=== PATIENT | male | born 1960 | race African-American/Black ===

== ENCOUNTER 2022-03-30 12:12 | Inpatient (IN) | payer OTHER ==
[2022-03-30 12:19] VITALS: BMI 25.0
[2022-03-30 13:39] LABS: BASO % 0.1 % (0-2.0); HEMATOCRIT 37.3 % (35.4-49); HEMOGLOBIN 12.5 GM/dL (11.7-16.9); LYMPH % 6.7 % (8-40); MCH 31.4 pg (25.7-33.7); MCHC 33.4 g/dl (32.0-35.9); MEAN CELL VOLUME 93.9 fl (80-96); MEAN PLT VOLUME 7.5 fl (7.5-11.1); MONO % 7.9 % (3.8-10.2); NEUT % 85.3 % (42.8-82.8); PLATELET COUNT 146 10^3/uL (134-434); RBC 3.97 M/mm3 (4.00-5.60); RDW 13.8 % (11.9-15.9); WHITE BLOOD COUNT 8.1 K/mm3 (4.0-10.0)
[2022-03-30 13:44] LABS: INR 1.18 (0.83-1.09); PROTHROMBIN TIME (PATIENT) 13.6 SEC (9.7-13.0)
[2022-03-30 13:47] LABS: ACTIVATED PTT 27.3 SECONDS (25.2-36.5)
[2022-03-30 13:52] LABS: BLOOD UREA NITROGEN 19.9 mg/dL (7-18); CALCIUM 8.7 mg/dL (8.5-10.1)
[2022-03-30 13:53] LABS: ALBUMIN 3.1 g/dl (3.4-5.0)
[2022-03-30 13:56] LABS: CREATININE 1.1 mg/dL (0.55-1.3)
[2022-03-30 13:57] LABS: BILIRUBIN,TOTAL 0.8 mg/dL (0.2-1); TOT PROT 7.7 g/dl (6.4-8.2)
[2022-03-30] MEDS ORDERED: ACETAMINOPHEN 1000 MG/100 ML BAG IVPB ONE (13:57)
[2022-03-30] MEDS ORDERED: ONDANSETRON 4 MG/2 ML VIAL IVPUSH ONE (13:57)
[2022-03-30] MEDS ORDERED: SODIUM CHLORIDE 1,000 ML IV STA ×2 (14:32→16:40)
[2022-03-30] MEDS ORDERED: ACETAMINOPHEN INJECTION 100 ML IVPB ONE (15:34)
[2022-03-30] MEDS ORDERED: ONDANSETRON 4 MG/2 ML VIAL ONE (15:35)
[2022-03-30 20:10] LABS: EPI CELLS 27 /uL (0-25.1); HYALINE CASTS 9 /uL (0-3.1); PH,URINE 5.5 (5.0-8.0); URINE APPEARANCE CLEAR; URINE BACTERIA 20 /uL (0-1359); URINE BILIRUBIN 1+ (NEGATIVE); URINE COLOR DK YELLOW; URINE GLUCOSE (UA) NEGATIVE (NEGATIVE); URINE KETONE 1+ (NEGATIVE); URINE LEUK ESTERASE NEGATIVE (NEGATIVE); URINE NITRITE NEGATIVE (NEGATIVE); URINE PROTEIN 3+ (NEGATIVE); URINE RBC 9 /uL (0-23.9); URINE WBC 10 /uL (0-25.8)
[2022-03-30] MEDS ORDERED: IBUPROFEN 400 MG TABLET (FP) PO ONE (23:23)
[2022-03-31] MEDS ORDERED: IBUPROFEN 400 MG TABLET (FP) PO ONE (00:35)
[2022-03-31] MEDS ORDERED: CEFTRIAXONE 1,000 MG in DEXTROSE 5%-WATER - 50 ML IVPB ONE (00:36)
[2022-03-31] MEDS ORDERED: CEFTRIAXONE 1 GM/50 ML BAG ONE (01:37)
[2022-03-31] MEDS ORDERED: SODIUM CHLORIDE 1,000 ML IV SCH (05:05)
[2022-03-31 06:32] LABS: HEMATOCRIT 37.1 % (35.4-49); HEMOGLOBIN 12.2 GM/dL (11.7-16.9); MCH 31.1 pg (25.7-33.7); MCHC 32.8 g/dl (32.0-35.9); MEAN CELL VOLUME 94.8 fl (80-96); MEAN PLT VOLUME 7.6 fl (7.5-11.1); PLATELET COUNT 127 10^3/uL (134-434); RBC 3.91 M/mm3 (4.00-5.60); RDW 13.7 % (11.9-15.9); WHITE BLOOD COUNT 6.8 K/mm3 (4.0-10.0)
[2022-03-31 06:56] LABS: ALBUMIN 2.7 g/dl (3.4-5.0); BLOOD UREA NITROGEN 17.1 mg/dL (7-18); CALCIUM 8.7 mg/dL (8.5-10.1); MAGNESIUM 2.3 mg/dL (1.8-2.4)
[2022-03-31 06:59] LABS: PHOSPHOROUS 2.5 mg/dL (2.5-4.9)
[2022-03-31 07:00] LABS: TOT PROT 6.9 g/dl (6.4-8.2)
[2022-03-31] MEDS ORDERED: LOSARTAN POTASSIUM 50 MG TABLET ONE (08:25)
[2022-03-31] MEDS ORDERED: ENOXAPARIN NA (PORCINE) 40 MG/0.4 ML DISP.SYRIN SQ ONE (08:26)
[2022-03-31] MEDS ORDERED: TAMSULOSIN HCL 0.4 MG CAP ONE (08:26)
[2022-03-31] MEDS: TAMSULOSIN HCL 0.4 MG CAP PO SCH (08:29)
[2022-03-31] MEDS: SODIUM CHLORIDE 1,000 ML IV SCH (08:29)
[2022-03-31 08:45] LABS: ANISOCYTOSIS 0; HELMET CELLS 0; HOWELL-JOLLY BODIES 0; MACROCYTOSIS 0; OVALOCYTE 0; ROULEAU 0; SICKELED CELLS 0; TARGET CELLS 0; TEAR DROP CELLS 0; TOXIC GRANULATION 0
[2022-03-31] MEDS ORDERED: VANCOMYCIN/WATER 1,250 MG/250 ML BAG (RESTRICTED TO ID ONLY) IVPB SCH ×2 (10:00)
[2022-03-31] MEDS: ENOXAPARIN NA (PORCINE) 40 MG/0.4 ML DISP.SYRIN SQ SCH (10:06)
[2022-03-31] MEDS: LOSARTAN POTASSIUM 50 MG TABLET PO SCH (10:07)
[2022-03-31] MEDS ORDERED: CEFTRIAXONE 2 GM in DEXTROSE 5%-WATER 50 ML IVPB SCH (10:30)
[2022-03-31] MEDS ORDERED: CEFTRIAXONE 2 GM in DEXTROSE 5%-WATER 100 ML IVPB SCH (10:33)
[2022-03-31] MEDS: VANCOMYCIN/WATER FOR INJ (PEG) 1,000 MG/200 ML BAG IVPB SCH (21:30)
[2022-04-01] MEDS: SODIUM CHLORIDE 1,000 ML IV SCH (06:34)
[2022-04-01] MEDS: ENOXAPARIN NA (PORCINE) 40 MG/0.4 ML DISP.SYRIN SQ SCH (09:27)
[2022-04-01] MEDS: LOSARTAN POTASSIUM 50 MG TABLET PO SCH (09:27)
[2022-04-01] MEDS: TAMSULOSIN HCL 0.4 MG CAP PO SCH (09:27)
[2022-04-01] MEDS: VANCOMYCIN/WATER FOR INJ (PEG) 1,000 MG/200 ML BAG IVPB SCH (09:28)
[2022-04-01 10:18] LABS: BASO % 0.2 % (0-2.0); EOS % 0.3 % (0-4.5); HEMATOCRIT 33.9 % (35.4-49); HEMOGLOBIN 11.1 GM/dL (11.7-16.9); LYMPH % 14.3 % (8-40); MCH 30.6 pg (25.7-33.7); MCHC 32.7 g/dl (32.0-35.9); MEAN CELL VOLUME 93.7 fl (80-96); MEAN PLT VOLUME 8.2 fl (7.5-11.1); MONO % 12.1 % (3.8-10.2); NEUT % 73.1 % (42.8-82.8); PLATELET COUNT 133 10^3/uL (134-434); RBC 3.62 M/mm3 (4.00-5.60); WHITE BLOOD COUNT 6.6 K/mm3 (4.0-10.0)
[2022-04-01 10:41] LABS: CALCIUM 8.2 mg/dL (8.5-10.1)
[2022-04-01 10:42] LABS: ALBUMIN 2.2 g/dl (3.4-5.0); BLOOD UREA NITROGEN 16.5 mg/dL (7-18); MAGNESIUM 2.3 mg/dL (1.8-2.4)
[2022-04-01 10:45] LABS: CREATININE 0.9 mg/dL (0.55-1.3); PHOSPHOROUS 1.8 mg/dL (2.5-4.9)
[2022-04-01 10:46] LABS: BILIRUBIN,TOTAL 1.2 mg/dL (0.2-1); TOT PROT 6.1 g/dl (6.4-8.2)
[2022-04-01] MEDS: NAFCILLIN - 2 GM in DEXTROSE 5%-WATER 100 ML IVPB SCH ×2 (17:25→23:11)
[2022-04-01] MEDS ORDERED: POTASSIUM PHOSPHATE 30 MM in SODIUM CHLORIDE 500 ML IVPB ONE (20:00)
[2022-04-02] MEDS ORDERED: ACETAMINOPHEN 1000 MG/100 ML BAG IVPB ONE (00:39)
[2022-04-02] MEDS: NAFCILLIN - 2 GM in DEXTROSE 5%-WATER 100 ML IVPB SCH ×6 (02:49→21:57)
[2022-04-02] MEDS: SODIUM CHLORIDE 1,000 ML IV SCH ×2 (04:35→17:34)
[2022-04-02] MEDS: ENOXAPARIN NA (PORCINE) 40 MG/0.4 ML DISP.SYRIN SQ SCH (09:04)
[2022-04-02] MEDS: LOSARTAN POTASSIUM 50 MG TABLET PO SCH (09:04)
[2022-04-02] MEDS: TAMSULOSIN HCL 0.4 MG CAP PO SCH (09:04)
[2022-04-02] MEDS: POLYETHYLENE GLYCOL (HEALTHYLAX) 3350 17 GM PACKET PO SCH (12:33)
[2022-04-02 13:19] LABS: BASO % 0.2 % (0-2.0); EOS % 0.1 % (0-4.5); HEMATOCRIT 34.6 % (35.4-49); HEMOGLOBIN 11.4 GM/dL (11.7-16.9); LYMPH % 10.7 % (8-40); MCH 31.2 pg (25.7-33.7); MEAN CELL VOLUME 94.4 fl (80-96); MEAN PLT VOLUME 8.3 fl (7.5-11.1); PLATELET COUNT 147 10^3/uL (134-434); RBC 3.66 M/mm3 (4.00-5.60); RDW 14.2 % (11.9-15.9); WHITE BLOOD COUNT 5.6 K/mm3 (4.0-10.0)
[2022-04-02 13:49] LABS: ALBUMIN 1.9 g/dl (3.4-5.0); CALCIUM 7.7 mg/dL (8.5-10.1)
[2022-04-02 13:50] LABS: BLOOD UREA NITROGEN 15.5 mg/dL (7-18); MAGNESIUM 2.2 mg/dL (1.8-2.4)
[2022-04-02 13:52] LABS: PHOSPHOROUS 2.4 mg/dL (2.5-4.9)
[2022-04-02 13:54] LABS: BILIRUBIN,TOTAL 2.6 mg/dL (0.2-1)
[2022-04-02 14:00] LABS: TOT PROT 5.7 g/dl (6.4-8.2)
[2022-04-02 14:14] LABS: CREATININE 0.9 mg/dL (0.55-1.3)
[2022-04-03] MEDS: NAFCILLIN - 2 GM in DEXTROSE 5%-WATER 100 ML IVPB SCH ×6 (02:00→21:36)
[2022-04-03] MEDS ORDERED: NAPH,MB-DB/K PH,MBDB POWDER PACKET PO ONE (03:36)
[2022-04-03] MEDS ORDERED: amLODIPine BESYLATE 5 MG TABLET (FP) PO ONE (03:36)
[2022-04-03] MEDS: SODIUM CHLORIDE 1,000 ML IV SCH (05:42)
[2022-04-03 08:45] LABS: BASO % 0.3 % (0-2.0); EOS % 0.4 % (0-4.5); HEMATOCRIT 31.8 % (35.4-49); HEMOGLOBIN 10.8 GM/dL (11.7-16.9); LYMPH % 15.5 % (8-40); MCH 31.8 pg (25.7-33.7); MCHC 34.1 g/dl (32.0-35.9); MEAN CELL VOLUME 93.2 fl (80-96); MONO % 12.4 % (3.8-10.2); NEUT % 71.4 % (42.8-82.8); PLATELET COUNT 194 10^3/uL (134-434); RBC 3.41 M/mm3 (4.00-5.60); WHITE BLOOD COUNT 6.8 K/mm3 (4.0-10.0)
[2022-04-03 09:12] LABS: ALBUMIN 1.7 g/dl (3.4-5.0); CALCIUM 8.1 mg/dL (8.5-10.1)
[2022-04-03 09:13] LABS: BLOOD UREA NITROGEN 14.4 mg/dL (7-18); MAGNESIUM 2.2 mg/dL (1.8-2.4)
[2022-04-03 09:16] LABS: CREATININE 0.9 mg/dL (0.55-1.3); PHOSPHOROUS 2.8 mg/dL (2.5-4.9)
[2022-04-03 09:17] LABS: BILIRUBIN,TOTAL 1.2 mg/dL (0.2-1); TOT PROT 5.6 g/dl (6.4-8.2)
[2022-04-03] MEDS: HYDROCHLOROTHIAZIDE 25 MG TABLET (FP) PO SCH (09:36)
[2022-04-03] MEDS: LOSARTAN POTASSIUM 50 MG TABLET PO SCH (09:36)
[2022-04-03] MEDS: POLYETHYLENE GLYCOL (HEALTHYLAX) 3350 17 GM PACKET PO SCH (09:37)
[2022-04-03] MEDS: TAMSULOSIN HCL 0.4 MG CAP PO SCH (09:37)
[2022-04-03] MEDS: ENOXAPARIN NA (PORCINE) 40 MG/0.4 ML DISP.SYRIN SQ SCH (09:37)
[2022-04-03] MEDS ORDERED: PATIENT'S OWN MEDICATION (NON-FORMULARY) (Losartan/Hydrochlorothiazide [Hyzaar 100-25 Tabl PO SCH (10:00)
[2022-04-04] MEDS: NAFCILLIN - 2 GM in DEXTROSE 5%-WATER 100 ML IVPB SCH ×6 (01:59→21:05)
[2022-04-04] MEDS: TAMSULOSIN HCL 0.4 MG CAP PO SCH (08:47)
[2022-04-04 09:58] LABS: BASO % 0.2 % (0-2.0); EOS % 0.4 % (0-4.5); HEMATOCRIT 33.7 % (35.4-49); HEMOGLOBIN 11.5 GM/dL (11.7-16.9); LYMPH % 16.3 % (8-40); MCH 31.6 pg (25.7-33.7); MCHC 34.2 g/dl (32.0-35.9); MEAN CELL VOLUME 92.2 fl (80-96); MEAN PLT VOLUME 7.8 fl (7.5-11.1); MONO % 10.8 % (3.8-10.2); NEUT % 72.3 % (42.8-82.8); PLATELET COUNT 280 10^3/uL (134-434); RBC 3.65 M/mm3 (4.00-5.60); RDW 14.3 % (11.9-15.9); WHITE BLOOD COUNT 7.8 K/mm3 (4.0-10.0)
[2022-04-04] MEDS: ENOXAPARIN NA (PORCINE) 40 MG/0.4 ML DISP.SYRIN SQ SCH (10:00)
[2022-04-04] MEDS: HYDROCHLOROTHIAZIDE 25 MG TABLET (FP) PO SCH (10:00)
[2022-04-04] MEDS: LOSARTAN POTASSIUM 50 MG TABLET PO SCH (10:00)
[2022-04-04] MEDS: POLYETHYLENE GLYCOL (HEALTHYLAX) 3350 17 GM PACKET PO SCH (10:02)
[2022-04-04 10:18] LABS: ALBUMIN 1.9 g/dl (3.4-5.0); BLOOD UREA NITROGEN 15.3 mg/dL (7-18); CALCIUM 8.1 mg/dL (8.5-10.1); MAGNESIUM 2.4 mg/dL (1.8-2.4)
[2022-04-04 10:21] LABS: PHOSPHOROUS 3.5 mg/dL (2.5-4.9)
[2022-04-04 10:22] LABS: BILIRUBIN,TOTAL 1.8 mg/dL (0.2-1); TOT PROT 6.5 g/dl (6.4-8.2)
[2022-04-04] MEDS: VANCOMYCIN/WATER FOR INJ (PEG) 1,000 MG/200 ML BAG IVPB SCH (14:37)
[2022-04-04] MEDS ORDERED: POTASSIUM CHLORIDE TABS 20 MEQ TABLET.ER (FP) PO ONE ×2 (14:45→18:00)
[2022-04-05] MEDS: NAFCILLIN - 2 GM in DEXTROSE 5%-WATER 100 ML IVPB SCH ×6 (01:32→22:27)
[2022-04-05] MEDS: VANCOMYCIN/WATER FOR INJ (PEG) 1,000 MG/200 ML BAG IVPB SCH (02:41)
[2022-04-05] MEDS: TAMSULOSIN HCL 0.4 MG CAP PO SCH (08:04)
[2022-04-05] MEDS ORDERED: DOCUSATE SODIUM 100 MG CAPSULE (FP) PO PRN (08:27)
[2022-04-05] MEDS ORDERED: SENNOSIDES 8.6MG TABLET (FP) PO PRN (08:27)
[2022-04-05 10:10] LABS: BASO % 0.3 % (0-2.0); EOS % 0.4 % (0-4.5); HEMATOCRIT 34.9 % (35.4-49); HEMOGLOBIN 11.9 GM/dL (11.7-16.9); LYMPH % 16.2 % (8-40); MCH 31.8 pg (25.7-33.7); MEAN CELL VOLUME 93.5 fl (80-96); MEAN PLT VOLUME 7.5 fl (7.5-11.1); MONO % 7.9 % (3.8-10.2); NEUT % 75.2 % (42.8-82.8); PLATELET COUNT 380 10^3/uL (134-434); RBC 3.73 M/mm3 (4.00-5.60); RDW 14.9 % (11.9-15.9); WHITE BLOOD COUNT 8.9 K/mm3 (4.0-10.0)
[2022-04-05] MEDS: LOSARTAN POTASSIUM 50 MG TABLET PO SCH (10:23)
[2022-04-05] MEDS: POLYETHYLENE GLYCOL (HEALTHYLAX) 3350 17 GM PACKET PO SCH (10:23)
[2022-04-05] MEDS: HYDROCHLOROTHIAZIDE 25 MG TABLET (FP) PO SCH (10:23)
[2022-04-05] MEDS: ENOXAPARIN NA (PORCINE) 40 MG/0.4 ML DISP.SYRIN SQ SCH (10:23)
[2022-04-05 10:31] LABS: BLOOD UREA NITROGEN 20.7 mg/dL (7-18); CALCIUM 8.2 mg/dL (8.5-10.1); MAGNESIUM 2.6 mg/dL (1.8-2.4)
[2022-04-05 10:34] LABS: CREATININE 1.2 mg/dL (0.55-1.3); PHOSPHOROUS 3.4 mg/dL (2.5-4.9)
[2022-04-05 10:36] LABS: BILIRUBIN,TOTAL 1.7 mg/dL (0.2-1); TOT PROT 7.1 g/dl (6.4-8.2)
[2022-04-05] MEDS: ERTAPENEM SODIUM 1 GM in SODIUM CHLORIDE 50 ML IVPB SCH (14:53)
[2022-04-06] MEDS: NAFCILLIN - 2 GM in DEXTROSE 5%-WATER 100 ML IVPB SCH ×6 (01:26→21:34)
[2022-04-06] MEDS: TAMSULOSIN HCL 0.4 MG CAP PO SCH (08:55)
[2022-04-06] MEDS ORDERED: INSULIN (NOVOLOG) ASPART 100 UNITS/ML 10ML VIAL ONE (10:54)
[2022-04-06] MEDS: ERTAPENEM SODIUM 1 GM in SODIUM CHLORIDE 50 ML IVPB SCH (11:07)
[2022-04-06] MEDS: HYDROCHLOROTHIAZIDE 25 MG TABLET (FP) PO SCH (11:08)
[2022-04-06] MEDS: LOSARTAN POTASSIUM 50 MG TABLET PO SCH (11:08)
[2022-04-06] MEDS: POLYETHYLENE GLYCOL (HEALTHYLAX) 3350 17 GM PACKET PO SCH (11:10)
[2022-04-06] MEDS: ENOXAPARIN NA (PORCINE) 40 MG/0.4 ML DISP.SYRIN SQ SCH ×2 (11:14→15:02)
[2022-04-06 11:33] LABS: HEMATOCRIT 32.5 % (35.4-49); HEMOGLOBIN 10.8 GM/dL (11.7-16.9); MCH 30.9 pg (25.7-33.7); MCHC 33.2 g/dl (32.0-35.9); MEAN PLT VOLUME 7.5 fl (7.5-11.1); PLATELET COUNT 452 10^3/uL (134-434); RDW 14.6 % (11.9-15.9); WHITE BLOOD COUNT 6.3 K/mm3 (4.0-10.0)
[2022-04-06 11:51] LABS: CALCIUM 8.1 mg/dL (8.5-10.1)
[2022-04-06 11:52] LABS: ALBUMIN 1.8 g/dl (3.4-5.0); BLOOD UREA NITROGEN 25.1 mg/dL (7-18)
[2022-04-06] MEDS ORDERED: LIDOCAINE VISCOUS 2% ORAL/TOP 15 ML UNIT-DOSE CUP ONE (11:52)
[2022-04-06 11:55] LABS: CREATININE 1.2 mg/dL (0.55-1.3); PHOSPHOROUS 3.7 mg/dL (2.5-4.9)
[2022-04-06 11:56] LABS: BILIRUBIN,TOTAL 1.2 mg/dL (0.2-1); TOT PROT 6.9 g/dl (6.4-8.2)
[2022-04-06 12:30] LABS: ANISOCYTOSIS 0; HELMET CELLS 0; HOWELL-JOLLY BODIES 0; MACROCYTOSIS 0; OVALOCYTE 0; ROULEAU 0; SICKELED CELLS 0; TARGET CELLS 0; TEAR DROP CELLS 0; TOXIC GRANULATION 0
[2022-04-07] MEDS: NAFCILLIN - 2 GM in DEXTROSE 5%-WATER 100 ML IVPB SCH ×6 (02:05→21:30)
[2022-04-07] MEDS: TAMSULOSIN HCL 0.4 MG CAP PO SCH (10:13)
[2022-04-07] MEDS: LOSARTAN POTASSIUM 50 MG TABLET PO SCH (10:13)
[2022-04-07] MEDS: HYDROCHLOROTHIAZIDE 25 MG TABLET (FP) PO SCH (10:13)
[2022-04-07] MEDS: ENOXAPARIN NA (PORCINE) 40 MG/0.4 ML DISP.SYRIN SQ SCH (10:13)
[2022-04-07] MEDS: POLYETHYLENE GLYCOL (HEALTHYLAX) 3350 17 GM PACKET PO SCH (10:14)
[2022-04-07] MEDS: ERTAPENEM SODIUM 1 GM in SODIUM CHLORIDE 50 ML IVPB SCH (10:14)
[2022-04-07 10:37] LABS: BASO % 0.7 % (0-2.0); EOS % 0.3 % (0-4.5); HEMATOCRIT 32.2 % (35.4-49); LYMPH % 22.9 % (8-40); MCH 31.8 pg (25.7-33.7); MCHC 34.2 g/dl (32.0-35.9); MEAN CELL VOLUME 92.9 fl (80-96); MONO % 7.9 % (3.8-10.2); NEUT % 68.2 % (42.8-82.8); PLATELET COUNT 502 10^3/uL (134-434); RBC 3.47 M/mm3 (4.00-5.60); RDW 14.8 % (11.9-15.9); WHITE BLOOD COUNT 6.1 K/mm3 (4.0-10.0)
[2022-04-07 11:40] LABS: CALCIUM 8.6 mg/dL (8.5-10.1)
[2022-04-07 11:41] LABS: BLOOD UREA NITROGEN 31.7 mg/dL (7-18)
[2022-04-07 11:44] LABS: CREATININE 1.5 mg/dL (0.55-1.3); PHOSPHOROUS 4.2 mg/dL (2.5-4.9)
[2022-04-07 11:45] LABS: TOT PROT 7.3 g/dl (6.4-8.2)
[2022-04-07 11:46] LABS: BILIRUBIN,TOTAL 1.4 mg/dL (0.2-1)
[2022-04-08] MEDS: NAFCILLIN - 2 GM in DEXTROSE 5%-WATER 100 ML IVPB SCH ×6 (02:30→21:51)
[2022-04-08] MEDS: LOSARTAN POTASSIUM 50 MG TABLET PO SCH (09:22)
[2022-04-08] MEDS: ENOXAPARIN NA (PORCINE) 40 MG/0.4 ML DISP.SYRIN SQ SCH (09:22)
[2022-04-08] MEDS: HYDROCHLOROTHIAZIDE 25 MG TABLET (FP) PO SCH (09:22)
[2022-04-08] MEDS: TAMSULOSIN HCL 0.4 MG CAP PO SCH (09:22)
[2022-04-08] MEDS: POLYETHYLENE GLYCOL (HEALTHYLAX) 3350 17 GM PACKET PO SCH (09:23)
[2022-04-08 09:59] LABS: BASO % 0.8 % (0-2.0); EOS % 0.3 % (0-4.5); HEMATOCRIT 29.7 % (35.4-49); HEMOGLOBIN 10.3 GM/dL (11.7-16.9); LYMPH % 20.7 % (8-40); MCHC 34.7 g/dl (32.0-35.9); MEAN CELL VOLUME 92.4 fl (80-96); MEAN PLT VOLUME 6.9 fl (7.5-11.1); MONO % 8.7 % (3.8-10.2); NEUT % 69.5 % (42.8-82.8); PLATELET COUNT 520 10^3/uL (134-434); RBC 3.22 M/mm3 (4.00-5.60); RDW 14.7 % (11.9-15.9); WHITE BLOOD COUNT 5.5 K/mm3 (4.0-10.0)
[2022-04-08 10:12] LABS: CALCIUM 8.3 mg/dL (8.5-10.1)
[2022-04-08 10:13] LABS: ALBUMIN 1.8 g/dl (3.4-5.0); BLOOD UREA NITROGEN 31.1 mg/dL (7-18)
[2022-04-08 10:16] LABS: BILIRUBIN,TOTAL 1.5 mg/dL (0.2-1); CREATININE 1.5 mg/dL (0.55-1.3)
[2022-04-08 10:18] LABS: TOT PROT 6.8 g/dl (6.4-8.2)
[2022-04-08] MEDS: ERTAPENEM SODIUM 1 GM in SODIUM CHLORIDE 50 ML IVPB SCH (11:35)
[2022-04-08] MEDS ORDERED: POTASSIUM CHLORIDE ORAL LIQUID 20 MEQ/15 ML PO ONE (17:28)
[2022-04-08] MEDS: LIDOCAINE 5% TOPICAL PATCH TP SCH (18:19)
[2022-04-08] MEDS: LIDOCAINE PATCH REMOVAL MC SCH (21:51)
[2022-04-09] MEDS: NAFCILLIN - 2 GM in DEXTROSE 5%-WATER 100 ML IVPB SCH ×5 (02:24→17:10)
[2022-04-09] MEDS ORDERED: traMADol HCL 50 MG TABLET PO PRN ×2 (08:22→09:13)
[2022-04-09] MEDS: POLYETHYLENE GLYCOL (HEALTHYLAX) 3350 17 GM PACKET PO SCH (09:10)
[2022-04-09] MEDS: ENOXAPARIN NA (PORCINE) 40 MG/0.4 ML DISP.SYRIN SQ SCH (09:11)
[2022-04-09] MEDS: ERTAPENEM SODIUM 1 GM in SODIUM CHLORIDE 50 ML IVPB SCH (09:13)
[2022-04-09] MEDS: LOSARTAN POTASSIUM 50 MG TABLET PO SCH (09:13)
[2022-04-09] MEDS: TAMSULOSIN HCL 0.4 MG CAP PO SCH (09:13)
[2022-04-09] MEDS: LIDOCAINE 5% TOPICAL PATCH TP SCH (09:14)
[2022-04-09 10:18] LABS: BASO % 0.5 % (0-2.0); EOS % 0.8 % (0-4.5); HEMATOCRIT 31.7 % (35.4-49); HEMOGLOBIN 10.5 GM/dL (11.7-16.9); LYMPH % 22.8 % (8-40); MCH 30.7 pg (25.7-33.7); MCHC 33.2 g/dl (32.0-35.9); MEAN CELL VOLUME 92.7 fl (80-96); MEAN PLT VOLUME 7.1 fl (7.5-11.1); MONO % 7.9 % (3.8-10.2); PLATELET COUNT 590 10^3/uL (134-434); RBC 3.42 M/mm3 (4.00-5.60); RDW 14.8 % (11.9-15.9); WHITE BLOOD COUNT 5.6 K/mm3 (4.0-10.0)
[2022-04-09 10:36] LABS: ALBUMIN 1.8 g/dl (3.4-5.0); BLOOD UREA NITROGEN 24.8 mg/dL (7-18); CALCIUM 8.3 mg/dL (8.5-10.1); MAGNESIUM 3.1 mg/dL (1.8-2.4)
[2022-04-09 10:40] LABS: BILIRUBIN,TOTAL 1.3 mg/dL (0.2-1); CREATININE 1.4 mg/dL (0.55-1.3); PHOSPHOROUS 3.8 mg/dL (2.5-4.9); TOT PROT 7.4 g/dl (6.4-8.2)
[2022-04-09 10:42] LABS: IRON SERUM 43 ug/dL (50-175)
[2022-04-09 10:44] LABS: TOTAL IRON BINDING CAPACITY 203 ug/dL (250-450)
[2022-04-09] MEDS ORDERED: POTASSIUM CHLORIDE TABS 20 MEQ TABLET.ER (FP) PO ONE (17:31)
[2022-04-09] MEDS ORDERED: CEFAZOLIN SODIUM 2 GM in DEXTROSE 5%-WATER 100 ML IVPB SCH (18:00)
[2022-04-09] MEDS: CEFAZOLIN SODIUM 2 GM in DEXTROSE 5%-WATER 100 ML IVPB SCH (21:38)
[2022-04-09] MEDS: LIDOCAINE PATCH REMOVAL MC SCH (21:39)
[2022-04-10] MEDS: CEFAZOLIN SODIUM 2 GM in DEXTROSE 5%-WATER 100 ML IVPB SCH ×3 (05:33→22:26)
[2022-04-10] MEDS: TAMSULOSIN HCL 0.4 MG CAP PO SCH (08:20)
[2022-04-10] MEDS: POLYETHYLENE GLYCOL (HEALTHYLAX) 3350 17 GM PACKET PO SCH (09:27)
[2022-04-10] MEDS: ENOXAPARIN NA (PORCINE) 40 MG/0.4 ML DISP.SYRIN SQ SCH (09:27)
[2022-04-10] MEDS: LOSARTAN POTASSIUM 50 MG TABLET PO SCH (09:27)
[2022-04-10] MEDS: LIDOCAINE 5% TOPICAL PATCH TP SCH (09:27)
[2022-04-10 09:49] LABS: BASO % 0.3 % (0-2.0); EOS % 0.6 % (0-4.5); HEMATOCRIT 29.9 % (35.4-49); HEMOGLOBIN 10.3 GM/dL (11.7-16.9); LYMPH % 23.1 % (8-40); MCHC 34.4 g/dl (32.0-35.9); MEAN CELL VOLUME 93.2 fl (80-96); MEAN PLT VOLUME 6.7 fl (7.5-11.1); MONO % 7.5 % (3.8-10.2); NEUT % 68.5 % (42.8-82.8); PLATELET COUNT 592 10^3/uL (134-434); RBC 3.21 M/mm3 (4.00-5.60); RDW 14.6 % (11.9-15.9); WHITE BLOOD COUNT 6.5 K/mm3 (4.0-10.0)
[2022-04-10 10:13] LABS: CALCIUM 8.5 mg/dL (8.5-10.1)
[2022-04-10 10:14] LABS: ALBUMIN 1.9 g/dl (3.4-5.0); MAGNESIUM 2.9 mg/dL (1.8-2.4)
[2022-04-10 10:18] LABS: BILIRUBIN,TOTAL 0.9 mg/dL (0.2-1); CREATININE 1.4 mg/dL (0.55-1.3); PHOSPHOROUS 3.5 mg/dL (2.5-4.9); TOT PROT 7.4 g/dl (6.4-8.2)
[2022-04-10] MEDS: LIDOCAINE PATCH REMOVAL MC SCH (22:32)
[2022-04-11] MEDS: CEFAZOLIN SODIUM 2 GM in DEXTROSE 5%-WATER 100 ML IVPB SCH ×3 (05:51→22:32)
[2022-04-11 09:36] LABS: BASO % 0.4 % (0-2.0); EOS % 0.4 % (0-4.5); HEMATOCRIT 30.6 % (35.4-49); HEMOGLOBIN 10.4 GM/dL (11.7-16.9); LYMPH % 22.1 % (8-40); MCH 31.1 pg (25.7-33.7); MCHC 33.8 g/dl (32.0-35.9); MEAN PLT VOLUME 6.8 fl (7.5-11.1); MONO % 7.2 % (3.8-10.2); NEUT % 69.9 % (42.8-82.8); PLATELET COUNT 686 10^3/uL (134-434); RBC 3.33 M/mm3 (4.00-5.60); RDW 14.3 % (11.9-15.9)
[2022-04-11 10:07] LABS: ALBUMIN 1.8 g/dl (3.4-5.0); BLOOD UREA NITROGEN 18.1 mg/dL (7-18)
[2022-04-11 10:09] LABS: CALCIUM 8.6 mg/dL (8.5-10.1); MAGNESIUM 2.6 mg/dL (1.8-2.4)
[2022-04-11 10:10] LABS: CREATININE 1.2 mg/dL (0.55-1.3); PHOSPHOROUS 3.5 mg/dL (2.5-4.9)
[2022-04-11 10:11] LABS: TOT PROT 7.8 g/dl (6.4-8.2)
[2022-04-11 10:12] LABS: BILIRUBIN,TOTAL 0.9 mg/dL (0.2-1)
[2022-04-11] MEDS: LIDOCAINE 5% TOPICAL PATCH TP SCH (10:23)
[2022-04-11] MEDS: POLYETHYLENE GLYCOL (HEALTHYLAX) 3350 17 GM PACKET PO SCH (10:23)
[2022-04-11] MEDS: LOSARTAN POTASSIUM 50 MG TABLET PO SCH (10:24)
[2022-04-11] MEDS: ENOXAPARIN NA (PORCINE) 40 MG/0.4 ML DISP.SYRIN SQ SCH (10:24)
[2022-04-11] MEDS: TAMSULOSIN HCL 0.4 MG CAP PO SCH (10:24)
[2022-04-11] MEDS ORDERED: POTASSIUM CHLORIDE TABS 20 MEQ TABLET.ER (FP) PO ONE (13:38)
[2022-04-11] MEDS: BACLOFEN 10 MG TABLET (FP) PO PRN (13:55)
[2022-04-11] MEDS: oxyCODONE HCL 5 MG TABLET PO PRN ×2 (13:55→20:24)
[2022-04-11] MEDS: GABAPENTIN 100 MG CAPSULE PO SCH ×2 (13:56→22:32)
[2022-04-11] MEDS: LIDOCAINE PATCH REMOVAL MC SCH (22:32)
[2022-04-12] MEDS: CEFAZOLIN SODIUM 2 GM in DEXTROSE 5%-WATER 100 ML IVPB SCH ×3 (06:19→22:25)
[2022-04-12] MEDS: GABAPENTIN 100 MG CAPSULE PO SCH ×3 (06:19→22:26)
[2022-04-12 09:34] LABS: BASO % 0.6 % (0-2.0); EOS % 0.4 % (0-4.5); HEMATOCRIT 29.7 % (35.4-49); LYMPH % 22.9 % (8-40); MCH 31.1 pg (25.7-33.7); MCHC 33.8 g/dl (32.0-35.9); MEAN PLT VOLUME 6.8 fl (7.5-11.1); MONO % 9.6 % (3.8-10.2); NEUT % 66.5 % (42.8-82.8); PLATELET COUNT 658 10^3/uL (134-434); RBC 3.23 M/mm3 (4.00-5.60); RDW 14.5 % (11.9-15.9); WHITE BLOOD COUNT 6.1 K/mm3 (4.0-10.0)
[2022-04-12 09:57] LABS: CALCIUM 8.7 mg/dL (8.5-10.1)
[2022-04-12 09:58] LABS: ALBUMIN 1.8 g/dl (3.4-5.0); MAGNESIUM 2.6 mg/dL (1.8-2.4)
[2022-04-12 09:59] LABS: PHOSPHOROUS 3.3 mg/dL (2.5-4.9)
[2022-04-12 10:01] LABS: BILIRUBIN,TOTAL 0.8 mg/dL (0.2-1); BLOOD UREA NITROGEN 19.3 mg/dL (7-18); CREATININE 1.1 mg/dL (0.55-1.3); TOT PROT 7.6 g/dl (6.4-8.2)
[2022-04-12] MEDS: LOSARTAN POTASSIUM 50 MG TABLET PO SCH (10:06)
[2022-04-12] MEDS: BACLOFEN 10 MG TABLET (FP) PO PRN (10:06)
[2022-04-12] MEDS: TAMSULOSIN HCL 0.4 MG CAP PO SCH (10:06)
[2022-04-12] MEDS: POLYETHYLENE GLYCOL (HEALTHYLAX) 3350 17 GM PACKET PO SCH (10:06)
[2022-04-12] MEDS: ENOXAPARIN NA (PORCINE) 40 MG/0.4 ML DISP.SYRIN SQ SCH (10:06)
[2022-04-12] MEDS: LIDOCAINE 5% TOPICAL PATCH TP SCH (10:06)
[2022-04-12] MEDS: LIDOCAINE PATCH REMOVAL MC SCH (22:26)
[2022-04-13] MEDS: CEFAZOLIN SODIUM 2 GM in DEXTROSE 5%-WATER 100 ML IVPB SCH ×3 (06:28→22:16)
[2022-04-13] MEDS: GABAPENTIN 100 MG CAPSULE PO SCH ×3 (06:28→22:15)
[2022-04-13] MEDS: LIDOCAINE 5% TOPICAL PATCH TP SCH (10:04)
[2022-04-13] MEDS: POLYETHYLENE GLYCOL (HEALTHYLAX) 3350 17 GM PACKET PO SCH (10:05)
[2022-04-13] MEDS: LOSARTAN POTASSIUM 50 MG TABLET PO SCH (10:05)
[2022-04-13] MEDS: ENOXAPARIN NA (PORCINE) 40 MG/0.4 ML DISP.SYRIN SQ SCH (10:05)
[2022-04-13] MEDS: TAMSULOSIN HCL 0.4 MG CAP PO SCH (10:05)
[2022-04-13] MEDS: BACLOFEN 10 MG TABLET (FP) PO PRN (10:12)
[2022-04-13 11:18] LABS: BASO % 0.3 % (0-2.0); EOS % 0.1 % (0-4.5); HEMATOCRIT 31.6 % (35.4-49); HEMOGLOBIN 10.2 GM/dL (11.7-16.9); LYMPH % 24.6 % (8-40); MCHC 32.4 g/dl (32.0-35.9); MEAN CELL VOLUME 92.6 fl (80-96); MONO % 7.2 % (3.8-10.2); NEUT % 67.8 % (42.8-82.8); PLATELET COUNT 652 10^3/uL (134-434); RBC 3.41 M/mm3 (4.00-5.60); WHITE BLOOD COUNT 7.4 K/mm3 (4.0-10.0)
[2022-04-13 12:13] LABS: ALBUMIN 1.9 g/dl (3.4-5.0); BLOOD UREA NITROGEN 18.7 mg/dL (7-18); MAGNESIUM 2.4 mg/dL (1.8-2.4)
[2022-04-13 12:16] LABS: CREATININE 1.1 mg/dL (0.55-1.3); PHOSPHOROUS 3.4 mg/dL (2.5-4.9)
[2022-04-13 12:17] LABS: BILIRUBIN,TOTAL 0.9 mg/dL (0.2-1); TOT PROT 7.9 g/dl (6.4-8.2)
[2022-04-13] MEDS: LIDOCAINE PATCH REMOVAL MC SCH (22:16)
[2022-04-14] MEDS: GABAPENTIN 100 MG CAPSULE PO SCH ×3 (06:28→22:26)
[2022-04-14] MEDS: CEFAZOLIN SODIUM 2 GM in DEXTROSE 5%-WATER 100 ML IVPB SCH ×3 (06:28→22:26)
[2022-04-14] MEDS: TAMSULOSIN HCL 0.4 MG CAP PO SCH (09:31)
[2022-04-14] MEDS: LOSARTAN POTASSIUM 50 MG TABLET PO SCH (09:31)
[2022-04-14] MEDS: POLYETHYLENE GLYCOL (HEALTHYLAX) 3350 17 GM PACKET PO SCH (09:31)
[2022-04-14] MEDS: ENOXAPARIN NA (PORCINE) 40 MG/0.4 ML DISP.SYRIN SQ SCH (09:31)
[2022-04-14] MEDS: LIDOCAINE 5% TOPICAL PATCH TP SCH ×2 (09:32)
[2022-04-14 09:52] LABS: BASO % 0.6 % (0-2.0); EOS % 0.2 % (0-4.5); HEMATOCRIT 30.6 % (35.4-49); HEMOGLOBIN 10.1 GM/dL (11.7-16.9); LYMPH % 24.3 % (8-40); MCH 30.7 pg (25.7-33.7); MCHC 32.9 g/dl (32.0-35.9); MEAN CELL VOLUME 93.3 fl (80-96); MEAN PLT VOLUME 6.7 fl (7.5-11.1); MONO % 10.3 % (3.8-10.2); NEUT % 64.6 % (42.8-82.8); PLATELET COUNT 611 10^3/uL (134-434); RBC 3.28 M/mm3 (4.00-5.60); RDW 14.2 % (11.9-15.9); WHITE BLOOD COUNT 5.7 K/mm3 (4.0-10.0)
[2022-04-14 10:32] LABS: ALBUMIN 1.8 g/dl (3.4-5.0); BLOOD UREA NITROGEN 17.3 mg/dL (7-18); MAGNESIUM 2.3 mg/dL (1.8-2.4)
[2022-04-14 10:35] LABS: CREATININE 1.1 mg/dL (0.55-1.3); PHOSPHOROUS 3.3 mg/dL (2.5-4.9)
[2022-04-14 10:36] LABS: TOT PROT 7.7 g/dl (6.4-8.2)
[2022-04-14] MEDS: LIDOCAINE PATCH REMOVAL MC SCH (22:27)
[2022-04-15] MEDS: CEFAZOLIN SODIUM 2 GM in DEXTROSE 5%-WATER 100 ML IVPB SCH ×3 (06:06→21:58)
[2022-04-15] MEDS: GABAPENTIN 100 MG CAPSULE PO SCH ×3 (06:06→21:59)
[2022-04-15] MEDS: ENOXAPARIN NA (PORCINE) 40 MG/0.4 ML DISP.SYRIN SQ SCH (09:03)
[2022-04-15] MEDS: TAMSULOSIN HCL 0.4 MG CAP PO SCH (09:26)
[2022-04-15] MEDS: POLYETHYLENE GLYCOL (HEALTHYLAX) 3350 17 GM PACKET PO SCH (09:26)
[2022-04-15] MEDS: LOSARTAN POTASSIUM 50 MG TABLET PO SCH (09:26)
[2022-04-15] MEDS: LIDOCAINE 5% TOPICAL PATCH TP SCH (09:27)
[2022-04-15 10:07] LABS: BASO % 0.8 % (0-2.0); EOS % 0.4 % (0-4.5); HEMOGLOBIN 9.7 GM/dL (11.7-16.9); LYMPH % 30.9 % (8-40); MCHC 33.4 g/dl (32.0-35.9); MONO % 9.9 % (3.8-10.2); PLATELET COUNT 558 10^3/uL (134-434); RBC 3.12 M/mm3 (4.00-5.60); RDW 14.2 % (11.9-15.9); WHITE BLOOD COUNT 5.5 K/mm3 (4.0-10.0)
[2022-04-15 10:32] LABS: CREATININE 1.1 mg/dL (0.55-1.3)
[2022-04-15 10:33] LABS: ALBUMIN 1.8 g/dl (3.4-5.0); BILIRUBIN,TOTAL 0.8 mg/dL (0.2-1); CALCIUM 8.7 mg/dL (8.5-10.1)
[2022-04-15 10:35] LABS: PHOSPHOROUS 3.4 mg/dL (2.5-4.9)
[2022-04-15 10:36] LABS: MAGNESIUM 2.3 mg/dL (1.8-2.4)
[2022-04-15] MEDS: BACLOFEN 10 MG TABLET (FP) PO PRN (14:37)
[2022-04-15] MEDS: LIDOCAINE PATCH REMOVAL MC SCH (22:00)
[2022-04-16] MEDS: CEFAZOLIN SODIUM 2 GM in DEXTROSE 5%-WATER 100 ML IVPB SCH ×3 (05:55→21:30)
[2022-04-16] MEDS: GABAPENTIN 100 MG CAPSULE PO SCH ×3 (05:55→21:30)
[2022-04-16] MEDS: oxyCODONE HCL 5 MG TABLET PO PRN (08:13)
[2022-04-16] MEDS: ENOXAPARIN NA (PORCINE) 40 MG/0.4 ML DISP.SYRIN SQ SCH (09:36)
[2022-04-16] MEDS: POLYETHYLENE GLYCOL (HEALTHYLAX) 3350 17 GM PACKET PO SCH (09:40)
[2022-04-16] MEDS: TAMSULOSIN HCL 0.4 MG CAP PO SCH (09:40)
[2022-04-16] MEDS: LOSARTAN POTASSIUM 50 MG TABLET PO SCH (09:41)
[2022-04-16] MEDS: LIDOCAINE 5% TOPICAL PATCH TP SCH (09:42)
[2022-04-16 13:12] LABS: BASO % 0.7 % (0-2.0); EOS % 0.3 % (0-4.5); HEMATOCRIT 27.8 % (35.4-49); HEMOGLOBIN 9.3 GM/dL (11.7-16.9); LYMPH % 26.4 % (8-40); MCH 31.3 pg (25.7-33.7); MCHC 33.6 g/dl (32.0-35.9); MEAN CELL VOLUME 93.2 fl (80-96); MEAN PLT VOLUME 6.8 fl (7.5-11.1); MONO % 10.6 % (3.8-10.2); PLATELET COUNT 482 10^3/uL (134-434); RBC 2.99 M/mm3 (4.00-5.60); RDW 14.6 % (11.9-15.9); WHITE BLOOD COUNT 5.3 K/mm3 (4.0-10.0)
[2022-04-16 13:30] LABS: CALCIUM 8.9 mg/dL (8.5-10.1)
[2022-04-16 13:31] LABS: ALBUMIN 1.8 g/dl (3.4-5.0); BLOOD UREA NITROGEN 16.3 mg/dL (7-18); MAGNESIUM 2.3 mg/dL (1.8-2.4)
[2022-04-16 13:34] LABS: CREATININE 1.1 mg/dL (0.55-1.3); PHOSPHOROUS 3.6 mg/dL (2.5-4.9)
[2022-04-16 13:35] LABS: BILIRUBIN,TOTAL 0.8 mg/dL (0.2-1); TOT PROT 7.6 g/dl (6.4-8.2)
[2022-04-16] MEDS: LIDOCAINE PATCH REMOVAL MC SCH (21:45)
[2022-04-17] MEDS: GABAPENTIN 100 MG CAPSULE PO SCH ×3 (06:33→22:49)
[2022-04-17] MEDS: CEFAZOLIN SODIUM 2 GM in DEXTROSE 5%-WATER 100 ML IVPB SCH ×3 (06:33→22:51)
[2022-04-17 09:56] LABS: BASO % 0.7 % (0-2.0); EOS % 0.5 % (0-4.5); HEMOGLOBIN 9.2 GM/dL (11.7-16.9); LYMPH % 30.8 % (8-40); MCH 31.9 pg (25.7-33.7); MCHC 34.2 g/dl (32.0-35.9); MEAN CELL VOLUME 93.1 fl (80-96); MEAN PLT VOLUME 6.5 fl (7.5-11.1); MONO % 12.4 % (3.8-10.2); NEUT % 55.6 % (42.8-82.8); PLATELET COUNT 443 10^3/uL (134-434); RDW 14.1 % (11.9-15.9); WHITE BLOOD COUNT 4.4 K/mm3 (4.0-10.0)
[2022-04-17 10:24] LABS: ALBUMIN 1.8 g/dl (3.4-5.0); BLOOD UREA NITROGEN 16.8 mg/dL (7-18); CALCIUM 8.9 mg/dL (8.5-10.1); MAGNESIUM 2.4 mg/dL (1.8-2.4)
[2022-04-17 10:27] LABS: BILIRUBIN,TOTAL 0.7 mg/dL (0.2-1); PHOSPHOROUS 3.7 mg/dL (2.5-4.9); TOT PROT 7.5 g/dl (6.4-8.2)
[2022-04-17] MEDS: TAMSULOSIN HCL 0.4 MG CAP PO SCH (10:33)
[2022-04-17] MEDS: POLYETHYLENE GLYCOL (HEALTHYLAX) 3350 17 GM PACKET PO SCH (10:33)
[2022-04-17] MEDS: LOSARTAN POTASSIUM 50 MG TABLET PO SCH (10:33)
[2022-04-17] MEDS: LIDOCAINE 5% TOPICAL PATCH TP SCH (10:47)
[2022-04-17] MEDS: oxyCODONE HCL 5 MG TABLET PO PRN (22:49)
[2022-04-17] MEDS: BACLOFEN 10 MG TABLET (FP) PO PRN (22:50)
[2022-04-17] MEDS: LIDOCAINE PATCH REMOVAL MC SCH (22:51)
[2022-04-18] MEDS: GABAPENTIN 100 MG CAPSULE PO SCH ×3 (07:29→21:43)
[2022-04-18] MEDS: CEFAZOLIN SODIUM 2 GM in DEXTROSE 5%-WATER 100 ML IVPB SCH ×3 (07:29→21:43)
[2022-04-18] MEDS: TAMSULOSIN HCL 0.4 MG CAP PO SCH (08:31)
[2022-04-18 08:56] LABS: BASO % 0.7 % (0-2.0); EOS % 0.4 % (0-4.5); HEMATOCRIT 27.4 % (35.4-49); LYMPH % 24.9 % (8-40); MCH 30.9 pg (25.7-33.7); MCHC 32.7 g/dl (32.0-35.9); MEAN CELL VOLUME 94.3 fl (80-96); MEAN PLT VOLUME 6.5 fl (7.5-11.1); MONO % 10.4 % (3.8-10.2); NEUT % 63.6 % (42.8-82.8); PLATELET COUNT 442 10^3/uL (134-434); RBC 2.91 M/mm3 (4.00-5.60); WHITE BLOOD COUNT 4.8 K/mm3 (4.0-10.0)
[2022-04-18] MEDS: LIDOCAINE 5% TOPICAL PATCH TP SCH (09:48)
[2022-04-18] MEDS: LOSARTAN POTASSIUM 50 MG TABLET PO SCH (09:49)
[2022-04-18] MEDS: POLYETHYLENE GLYCOL (HEALTHYLAX) 3350 17 GM PACKET PO SCH (09:49)
[2022-04-18 10:06] LABS: CALCIUM 8.4 mg/dL (8.5-10.1)
[2022-04-18 10:07] LABS: ALBUMIN 1.8 g/dl (3.4-5.0); BLOOD UREA NITROGEN 15.5 mg/dL (7-18); MAGNESIUM 2.2 mg/dL (1.8-2.4)
[2022-04-18 10:10] LABS: CREATININE 1.1 mg/dL (0.55-1.3); PHOSPHOROUS 3.4 mg/dL (2.5-4.9)
[2022-04-18 10:11] LABS: BILIRUBIN,TOTAL 0.6 mg/dL (0.2-1); TOT PROT 7.4 g/dl (6.4-8.2)
[2022-04-18] MEDS: LIDOCAINE PATCH REMOVAL MC SCH (21:44)
[2022-04-18] MEDS: oxyCODONE HCL 5 MG TABLET PO PRN (21:44)
[2022-04-19] MEDS: CEFAZOLIN SODIUM 2 GM in DEXTROSE 5%-WATER 100 ML IVPB SCH ×3 (05:21→21:26)
[2022-04-19] MEDS: GABAPENTIN 100 MG CAPSULE PO SCH ×3 (05:21→21:26)
[2022-04-19] MEDS: TAMSULOSIN HCL 0.4 MG CAP PO SCH (08:42)
[2022-04-19] MEDS: LOSARTAN POTASSIUM 50 MG TABLET PO SCH (09:46)
[2022-04-19] MEDS: POLYETHYLENE GLYCOL (HEALTHYLAX) 3350 17 GM PACKET PO SCH (09:47)
[2022-04-19] MEDS: LIDOCAINE 5% TOPICAL PATCH TP SCH (09:47)
[2022-04-19 09:56] LABS: BASO % 0.7 % (0-2.0); EOS % 0.8 % (0-4.5); HEMATOCRIT 27.7 % (35.4-49); HEMOGLOBIN 9.3 GM/dL (11.7-16.9); LYMPH % 31.2 % (8-40); MCH 31.5 pg (25.7-33.7); MCHC 33.5 g/dl (32.0-35.9); MEAN CELL VOLUME 93.9 fl (80-96); MEAN PLT VOLUME 6.4 fl (7.5-11.1); MONO % 12.3 % (3.8-10.2); PLATELET COUNT 397 10^3/uL (134-434); RBC 2.94 M/mm3 (4.00-5.60); WHITE BLOOD COUNT 4.6 K/mm3 (4.0-10.0)
[2022-04-19 10:00] LABS: ALBUMIN 1.8 g/dl (3.4-5.0)
[2022-04-19 10:02] LABS: BLOOD UREA NITROGEN 13.4 mg/dL (7-18); CALCIUM 8.4 mg/dL (8.5-10.1); CREATININE 1.1 mg/dL (0.55-1.3); MAGNESIUM 2.1 mg/dL (1.8-2.4)
[2022-04-19 10:03] LABS: PHOSPHOROUS 3.4 mg/dL (2.5-4.9)
[2022-04-19 10:04] LABS: BILIRUBIN,TOTAL 0.6 mg/dL (0.2-1); TOT PROT 7.7 g/dl (6.4-8.2)
[2022-04-19] MEDS ORDERED: CEFAZOLIN SODIUM 2 GM VIAL ONE (21:11)
[2022-04-19] MEDS: LIDOCAINE PATCH REMOVAL MC SCH (21:26)
[2022-04-20] MEDS: GABAPENTIN 100 MG CAPSULE PO SCH ×3 (06:43→23:38)
[2022-04-20] MEDS: CEFAZOLIN SODIUM 2 GM in DEXTROSE 5%-WATER 100 ML IVPB SCH ×3 (06:43→23:38)
[2022-04-20 09:15] LABS: BASO % 0.6 % (0-2.0); EOS % 0.8 % (0-4.5); HEMATOCRIT 28.5 % (35.4-49); HEMOGLOBIN 9.4 GM/dL (11.7-16.9); LYMPH % 34.5 % (8-40); MCH 30.8 pg (25.7-33.7); MEAN CELL VOLUME 93.4 fl (80-96); MEAN PLT VOLUME 6.4 fl (7.5-11.1); MONO % 12.2 % (3.8-10.2); NEUT % 51.9 % (42.8-82.8); PLATELET COUNT 419 10^3/uL (134-434); RBC 3.05 M/mm3 (4.00-5.60); RDW 13.9 % (11.9-15.9); WHITE BLOOD COUNT 4.8 K/mm3 (4.0-10.0)
[2022-04-20 09:29] LABS: CALCIUM 9.2 mg/dL (8.5-10.1)
[2022-04-20 09:30] LABS: MAGNESIUM 2.1 mg/dL (1.8-2.4)
[2022-04-20 09:32] LABS: CREATININE 1.1 mg/dL (0.55-1.3); PHOSPHOROUS 3.5 mg/dL (2.5-4.9)
[2022-04-20 09:34] LABS: BILIRUBIN,TOTAL 0.6 mg/dL (0.2-1)
[2022-04-20] MEDS: TAMSULOSIN HCL 0.4 MG CAP PO SCH (11:01)
[2022-04-20] MEDS: LOSARTAN POTASSIUM 50 MG TABLET PO SCH (11:01)
[2022-04-20] MEDS: LIDOCAINE 5% TOPICAL PATCH TP SCH (11:02)
[2022-04-20] MEDS: POLYETHYLENE GLYCOL (HEALTHYLAX) 3350 17 GM PACKET PO SCH (11:02)
[2022-04-20] MEDS: LIDOCAINE PATCH REMOVAL MC SCH (23:38)
[2022-04-21] MEDS: GABAPENTIN 100 MG CAPSULE PO SCH ×3 (07:00→22:20)
[2022-04-21] MEDS: CEFAZOLIN SODIUM 2 GM in DEXTROSE 5%-WATER 100 ML IVPB SCH ×3 (07:00→22:19)
[2022-04-21 09:33] LABS: BASO % 0.7 % (0-2.0); HEMATOCRIT 28.3 % (35.4-49); HEMOGLOBIN 9.3 GM/dL (11.7-16.9); MCH 30.8 pg (25.7-33.7); MEAN CELL VOLUME 93.5 fl (80-96); MEAN PLT VOLUME 6.5 fl (7.5-11.1); MONO % 12.1 % (3.8-10.2); NEUT % 48.2 % (42.8-82.8); PLATELET COUNT 363 10^3/uL (134-434); RBC 3.03 M/mm3 (4.00-5.60); RDW 14.2 % (11.9-15.9); WHITE BLOOD COUNT 4.3 K/mm3 (4.0-10.0)
[2022-04-21] MEDS: TAMSULOSIN HCL 0.4 MG CAP PO SCH (09:44)
[2022-04-21] MEDS: LOSARTAN POTASSIUM 50 MG TABLET PO SCH (09:44)
[2022-04-21] MEDS: POLYETHYLENE GLYCOL (HEALTHYLAX) 3350 17 GM PACKET PO SCH (09:45)
[2022-04-21] MEDS: LIDOCAINE 5% TOPICAL PATCH TP SCH (09:45)
[2022-04-21 09:50] LABS: CALCIUM 8.9 mg/dL (8.5-10.1)
[2022-04-21 09:51] LABS: BLOOD UREA NITROGEN 11.4 mg/dL (7-18)
[2022-04-21 09:54] LABS: CREATININE 1.1 mg/dL (0.55-1.3); PHOSPHOROUS 3.4 mg/dL (2.5-4.9)
[2022-04-21 09:55] LABS: BILIRUBIN,TOTAL 0.5 mg/dL (0.2-1); TOT PROT 8.1 g/dl (6.4-8.2)
[2022-04-21] MEDS: LIDOCAINE PATCH REMOVAL MC SCH (22:19)
[2022-04-22] MEDS: GABAPENTIN 100 MG CAPSULE PO SCH ×3 (06:42→21:27)
[2022-04-22] MEDS: CEFAZOLIN SODIUM 2 GM in DEXTROSE 5%-WATER 100 ML IVPB SCH ×3 (06:42→21:13)
[2022-04-22 10:12] LABS: BASO % 0.6 % (0-2.0); HEMATOCRIT 28.4 % (35.4-49); HEMOGLOBIN 9.5 GM/dL (11.7-16.9); LYMPH % 32.4 % (8-40); MCH 31.5 pg (25.7-33.7); MCHC 33.4 g/dl (32.0-35.9); MEAN CELL VOLUME 94.4 fl (80-96); MEAN PLT VOLUME 6.5 fl (7.5-11.1); MONO % 10.6 % (3.8-10.2); NEUT % 55.4 % (42.8-82.8); PLATELET COUNT 358 10^3/uL (134-434); RBC 3.01 M/mm3 (4.00-5.60); RDW 14.3 % (11.9-15.9); WHITE BLOOD COUNT 4.9 K/mm3 (4.0-10.0)
[2022-04-22] MEDS: LOSARTAN POTASSIUM 50 MG TABLET PO SCH (10:29)
[2022-04-22] MEDS: POLYETHYLENE GLYCOL (HEALTHYLAX) 3350 17 GM PACKET PO SCH (10:30)
[2022-04-22] MEDS: TAMSULOSIN HCL 0.4 MG CAP PO SCH (10:30)
[2022-04-22] MEDS: LIDOCAINE 5% TOPICAL PATCH TP SCH (10:30)
[2022-04-22 10:33] LABS: CALCIUM 9.1 mg/dL (8.5-10.1)
[2022-04-22 10:34] LABS: ALBUMIN 2.1 g/dl (3.4-5.0); BLOOD UREA NITROGEN 10.6 mg/dL (7-18); MAGNESIUM 2.1 mg/dL (1.8-2.4); PHOSPHOROUS 3.4 mg/dL (2.5-4.9)
[2022-04-22 10:36] LABS: BILIRUBIN,TOTAL 0.5 mg/dL (0.2-1); TOT PROT 8.2 g/dl (6.4-8.2)
[2022-04-22] MEDS ORDERED: CEFAZOLIN SODIUM 2 GM VIAL ONE (21:10)
[2022-04-22] MEDS: LIDOCAINE PATCH REMOVAL MC SCH (21:30)
[2022-04-23] MEDS: GABAPENTIN 100 MG CAPSULE PO SCH ×3 (05:31→21:18)
[2022-04-23] MEDS: CEFAZOLIN SODIUM 2 GM in DEXTROSE 5%-WATER 100 ML IVPB SCH ×3 (05:31→21:14)
[2022-04-23] MEDS: LOSARTAN POTASSIUM 50 MG TABLET PO SCH (09:30)
[2022-04-23] MEDS: TAMSULOSIN HCL 0.4 MG CAP PO SCH (09:30)
[2022-04-23] MEDS: LIDOCAINE 5% TOPICAL PATCH TP SCH (09:31)
[2022-04-23] MEDS: POLYETHYLENE GLYCOL (HEALTHYLAX) 3350 17 GM PACKET PO SCH (09:31)
[2022-04-23 09:50] LABS: BASO % 0.5 % (0-2.0); EOS % 0.8 % (0-4.5); HEMATOCRIT 29.5 % (35.4-49); HEMOGLOBIN 9.7 GM/dL (11.7-16.9); LYMPH % 36.1 % (8-40); MCH 30.9 pg (25.7-33.7); MCHC 32.9 g/dl (32.0-35.9); MEAN CELL VOLUME 93.9 fl (80-96); MEAN PLT VOLUME 6.6 fl (7.5-11.1); MONO % 8.9 % (3.8-10.2); NEUT % 53.7 % (42.8-82.8); PLATELET COUNT 332 10^3/uL (134-434); RBC 3.14 M/mm3 (4.00-5.60); RDW 14.3 % (11.9-15.9); WHITE BLOOD COUNT 4.9 K/mm3 (4.0-10.0)
[2022-04-23 10:10] LABS: CALCIUM 8.9 mg/dL (8.5-10.1)
[2022-04-23 10:11] LABS: ALBUMIN 2.1 g/dl (3.4-5.0); BLOOD UREA NITROGEN 12.4 mg/dL (7-18); MAGNESIUM 2.1 mg/dL (1.8-2.4)
[2022-04-23 10:14] LABS: PHOSPHOROUS 3.3 mg/dL (2.5-4.9)
[2022-04-23 10:15] LABS: TOT PROT 8.3 g/dl (6.4-8.2)
[2022-04-23 10:16] LABS: BILIRUBIN,TOTAL 0.6 mg/dL (0.2-1)
[2022-04-23] MEDS: ENOXAPARIN NA (PORCINE) 40 MG/0.4 ML DISP.SYRIN SQ SCH (16:38)
[2022-04-23] MEDS: LIDOCAINE PATCH REMOVAL MC SCH (21:15)
[2022-04-24] MEDS: CEFAZOLIN SODIUM 2 GM in DEXTROSE 5%-WATER 100 ML IVPB SCH ×3 (05:13→21:05)
[2022-04-24] MEDS: GABAPENTIN 100 MG CAPSULE PO SCH ×3 (05:17→21:06)
[2022-04-24 09:28] LABS: BASO % 0.7 % (0-2.0); EOS % 1.1 % (0-4.5); HEMATOCRIT 26.3 % (35.4-49); HEMOGLOBIN 8.9 GM/dL (11.7-16.9); LYMPH % 32.2 % (8-40); MCH 31.8 pg (25.7-33.7); MCHC 33.9 g/dl (32.0-35.9); MEAN PLT VOLUME 6.4 fl (7.5-11.1); MONO % 10.1 % (3.8-10.2); NEUT % 55.9 % (42.8-82.8); PLATELET COUNT 305 10^3/uL (134-434); RDW 14.1 % (11.9-15.9); WHITE BLOOD COUNT 4.8 K/mm3 (4.0-10.0)
[2022-04-24] MEDS: TAMSULOSIN HCL 0.4 MG CAP PO SCH (09:50)
[2022-04-24] MEDS: LIDOCAINE 5% TOPICAL PATCH TP SCH (10:08)
[2022-04-24] MEDS: POLYETHYLENE GLYCOL (HEALTHYLAX) 3350 17 GM PACKET PO SCH (10:08)
[2022-04-24] MEDS: LOSARTAN POTASSIUM 50 MG TABLET PO SCH (10:08)
[2022-04-24] MEDS: ENOXAPARIN NA (PORCINE) 40 MG/0.4 ML DISP.SYRIN SQ SCH (10:09)
[2022-04-24 10:21] LABS: CALCIUM 8.8 mg/dL (8.5-10.1)
[2022-04-24 10:22] LABS: BLOOD UREA NITROGEN 12.6 mg/dL (7-18); MAGNESIUM 1.9 mg/dL (1.8-2.4)
[2022-04-24 10:25] LABS: PHOSPHOROUS 3.4 mg/dL (2.5-4.9)
[2022-04-24 10:26] LABS: BILIRUBIN,TOTAL 0.7 mg/dL (0.2-1); TOT PROT 7.5 g/dl (6.4-8.2)
[2022-04-24] MEDS ORDERED: oxyCODONE HCL 5 MG TABLET PO PRN ×2 (12:30→12:33)
[2022-04-24] MEDS: LIDOCAINE PATCH REMOVAL MC SCH (21:06)
[2022-04-25] MEDS: GABAPENTIN 100 MG CAPSULE PO SCH (06:22)
[2022-04-25] MEDS: CEFAZOLIN SODIUM 2 GM in DEXTROSE 5%-WATER 100 ML IVPB SCH ×3 (06:22→22:25)
[2022-04-25 10:13] LABS: BASO % 0.7 % (0-2.0); EOS % 0.9 % (0-4.5); HEMATOCRIT 27.7 % (35.4-49); HEMOGLOBIN 9.4 GM/dL (11.7-16.9); LYMPH % 35.2 % (8-40); MCHC 33.9 g/dl (32.0-35.9); MEAN CELL VOLUME 94.2 fl (80-96); MEAN PLT VOLUME 6.3 fl (7.5-11.1); NEUT % 52.2 % (42.8-82.8); PLATELET COUNT 295 10^3/uL (134-434); RBC 2.94 M/mm3 (4.00-5.60); RDW 14.1 % (11.9-15.9); WHITE BLOOD COUNT 4.3 K/mm3 (4.0-10.0)
[2022-04-25 10:37] LABS: ALBUMIN 2.1 g/dl (3.4-5.0); BLOOD UREA NITROGEN 11.3 mg/dL (7-18); CALCIUM 8.6 mg/dL (8.5-10.1)
[2022-04-25 10:41] LABS: PHOSPHOROUS 3.3 mg/dL (2.5-4.9)
[2022-04-25 10:42] LABS: BILIRUBIN,TOTAL 0.7 mg/dL (0.2-1); TOT PROT 8.2 g/dl (6.4-8.2)
[2022-04-25] MEDS: TAMSULOSIN HCL 0.4 MG CAP PO SCH (11:27)
[2022-04-25] MEDS: LOSARTAN POTASSIUM 50 MG TABLET PO SCH (11:27)
[2022-04-25] MEDS: ENOXAPARIN NA (PORCINE) 40 MG/0.4 ML DISP.SYRIN SQ SCH (11:27)
[2022-04-25] MEDS: POLYETHYLENE GLYCOL (HEALTHYLAX) 3350 17 GM PACKET PO SCH (11:28)
[2022-04-25] MEDS: LIDOCAINE 5% TOPICAL PATCH TP SCH (11:28)
[2022-04-25] MEDS: BACLOFEN 10 MG TABLET (FP) PO SCH ×2 (14:28→22:24)
[2022-04-25] MEDS: GABAPENTIN 300 MG CAPSULE PO SCH ×2 (14:28→22:24)
[2022-04-25] MEDS: LIDOCAINE PATCH REMOVAL MC SCH (22:25)
[2022-04-26] MEDS: CEFAZOLIN SODIUM 2 GM in DEXTROSE 5%-WATER 100 ML IVPB SCH ×3 (06:54→22:35)
[2022-04-26] MEDS: GABAPENTIN 300 MG CAPSULE PO SCH ×3 (06:55→22:35)
[2022-04-26] MEDS: BACLOFEN 10 MG TABLET (FP) PO SCH ×3 (06:55→22:35)
[2022-04-26] MEDS: ENOXAPARIN NA (PORCINE) 40 MG/0.4 ML DISP.SYRIN SQ SCH (11:11)
[2022-04-26] MEDS: TAMSULOSIN HCL 0.4 MG CAP PO SCH (11:11)
[2022-04-26] MEDS: POLYETHYLENE GLYCOL (HEALTHYLAX) 3350 17 GM PACKET PO SCH (11:11)
[2022-04-26] MEDS: LOSARTAN POTASSIUM 50 MG TABLET PO SCH (11:11)
[2022-04-26] MEDS: LIDOCAINE 5% TOPICAL PATCH TP SCH (11:11)
[2022-04-26] MEDS: LIDOCAINE PATCH REMOVAL MC SCH (22:35)
[2022-04-27] MEDS: CEFAZOLIN SODIUM 2 GM in DEXTROSE 5%-WATER 100 ML IVPB SCH ×3 (06:14→22:16)
[2022-04-27] MEDS: GABAPENTIN 300 MG CAPSULE PO SCH ×3 (06:14→22:16)
[2022-04-27] MEDS: BACLOFEN 10 MG TABLET (FP) PO SCH ×3 (06:14→22:16)
[2022-04-27] MEDS: LOSARTAN POTASSIUM 50 MG TABLET PO SCH (09:59)
[2022-04-27] MEDS: POLYETHYLENE GLYCOL (HEALTHYLAX) 3350 17 GM PACKET PO SCH (09:59)
[2022-04-27] MEDS: TAMSULOSIN HCL 0.4 MG CAP PO SCH (09:59)
[2022-04-27] MEDS: ENOXAPARIN NA (PORCINE) 40 MG/0.4 ML DISP.SYRIN SQ SCH (10:00)
[2022-04-27] MEDS: LIDOCAINE 5% TOPICAL PATCH TP SCH (10:00)
[2022-04-27 12:27] LABS: BASO % 0.5 % (0-2.0); EOS % 0.2 % (0-4.5); HEMATOCRIT 29.5 % (35.4-49); HEMOGLOBIN 9.7 GM/dL (11.7-16.9); LYMPH % 22.7 % (8-40); MCH 31.3 pg (25.7-33.7); MCHC 32.8 g/dl (32.0-35.9); MEAN CELL VOLUME 95.5 fl (80-96); MEAN PLT VOLUME 6.8 fl (7.5-11.1); NEUT % 66.6 % (42.8-82.8); PLATELET COUNT 317 10^3/uL (134-434); RBC 3.09 M/mm3 (4.00-5.60); RDW 14.5 % (11.9-15.9)
[2022-04-27 12:29] LABS: BLOOD UREA NITROGEN 12.2 mg/dL (7-18)
[2022-04-27 12:30] LABS: CALCIUM 8.9 mg/dL (8.5-10.1)
[2022-04-27] MEDS: LIDOCAINE PATCH REMOVAL MC SCH (22:16)
[2022-04-28] MEDS: CEFAZOLIN SODIUM 2 GM in DEXTROSE 5%-WATER 100 ML IVPB SCH ×3 (05:53→22:10)
[2022-04-28] MEDS: GABAPENTIN 300 MG CAPSULE PO SCH ×3 (05:58→22:09)
[2022-04-28] MEDS: BACLOFEN 10 MG TABLET (FP) PO SCH ×3 (05:58→22:09)
[2022-04-28] MEDS: LIDOCAINE 5% TOPICAL PATCH TP SCH (09:42)
[2022-04-28] MEDS: POLYETHYLENE GLYCOL (HEALTHYLAX) 3350 17 GM PACKET PO SCH (09:43)
[2022-04-28] MEDS: TAMSULOSIN HCL 0.4 MG CAP PO SCH (09:43)
[2022-04-28] MEDS: LOSARTAN POTASSIUM 50 MG TABLET PO SCH (09:43)
[2022-04-28] MEDS: ENOXAPARIN NA (PORCINE) 40 MG/0.4 ML DISP.SYRIN SQ SCH (09:43)
[2022-04-28] MEDS ORDERED: oxyCODONE HCL 5 MG TABLET PO PRN (17:34)
[2022-04-28] MEDS: LIDOCAINE PATCH REMOVAL MC SCH (22:21)
[2022-04-29] MEDS: BACLOFEN 10 MG TABLET (FP) PO SCH ×3 (06:51→23:06)
[2022-04-29] MEDS: GABAPENTIN 300 MG CAPSULE PO SCH ×3 (06:51→23:05)
[2022-04-29] MEDS: CEFAZOLIN SODIUM 2 GM in DEXTROSE 5%-WATER 100 ML IVPB SCH ×3 (06:51→23:04)
[2022-04-29] MEDS: TAMSULOSIN HCL 0.4 MG CAP PO SCH (10:08)
[2022-04-29] MEDS: LOSARTAN POTASSIUM 50 MG TABLET PO SCH (10:08)
[2022-04-29] MEDS: ENOXAPARIN NA (PORCINE) 40 MG/0.4 ML DISP.SYRIN SQ SCH (10:09)
[2022-04-29] MEDS: LIDOCAINE 5% TOPICAL PATCH TP SCH (10:09)
[2022-04-29] MEDS: POLYETHYLENE GLYCOL (HEALTHYLAX) 3350 17 GM PACKET PO SCH (10:09)
[2022-04-29] MEDS: LIDOCAINE PATCH REMOVAL MC SCH (23:11)
[2022-04-30] MEDS: GABAPENTIN 300 MG CAPSULE PO SCH ×3 (06:55→21:11)
[2022-04-30] MEDS: BACLOFEN 10 MG TABLET (FP) PO SCH ×3 (06:55→21:11)
[2022-04-30] MEDS: CEFAZOLIN SODIUM 2 GM in DEXTROSE 5%-WATER 100 ML IVPB SCH ×4 (06:56→21:09)
[2022-04-30] MEDS: LIDOCAINE 5% TOPICAL PATCH TP SCH (09:07)
[2022-04-30] MEDS: ENOXAPARIN NA (PORCINE) 40 MG/0.4 ML DISP.SYRIN SQ SCH (09:07)
[2022-04-30] MEDS: LOSARTAN POTASSIUM 50 MG TABLET PO SCH (09:07)
[2022-04-30] MEDS: TAMSULOSIN HCL 0.4 MG CAP PO SCH (09:07)
[2022-04-30] MEDS: POLYETHYLENE GLYCOL (HEALTHYLAX) 3350 17 GM PACKET PO SCH (09:07)
[2022-04-30] MEDS: LIDOCAINE PATCH REMOVAL MC SCH (21:10)
[2022-05-01] MEDS: CEFAZOLIN SODIUM 2 GM in DEXTROSE 5%-WATER 100 ML IVPB SCH ×3 (05:05→22:36)
[2022-05-01] MEDS: GABAPENTIN 300 MG CAPSULE PO SCH ×3 (05:05→22:35)
[2022-05-01] MEDS: BACLOFEN 10 MG TABLET (FP) PO SCH ×3 (05:05→22:36)
[2022-05-01] MEDS: LOSARTAN POTASSIUM 50 MG TABLET PO SCH (09:37)
[2022-05-01] MEDS: POLYETHYLENE GLYCOL (HEALTHYLAX) 3350 17 GM PACKET PO SCH (09:38)
[2022-05-01] MEDS: LIDOCAINE 5% TOPICAL PATCH TP SCH (09:38)
[2022-05-01] MEDS: ENOXAPARIN NA (PORCINE) 40 MG/0.4 ML DISP.SYRIN SQ SCH (09:38)
[2022-05-01] MEDS: TAMSULOSIN HCL 0.4 MG CAP PO SCH (09:38)
[2022-05-01] MEDS: LIDOCAINE PATCH REMOVAL MC SCH (22:50)
[2022-05-02] MEDS: BACLOFEN 10 MG TABLET (FP) PO SCH ×3 (07:03→21:37)
[2022-05-02] MEDS: GABAPENTIN 300 MG CAPSULE PO SCH ×3 (07:03→21:37)
[2022-05-02] MEDS: CEFAZOLIN SODIUM 2 GM in DEXTROSE 5%-WATER 100 ML IVPB SCH ×3 (07:04→21:36)
[2022-05-02] MEDS: TAMSULOSIN HCL 0.4 MG CAP PO SCH (09:13)
[2022-05-02] MEDS: ENOXAPARIN NA (PORCINE) 40 MG/0.4 ML DISP.SYRIN SQ SCH (09:14)
[2022-05-02] MEDS: POLYETHYLENE GLYCOL (HEALTHYLAX) 3350 17 GM PACKET PO SCH (09:14)
[2022-05-02] MEDS: LOSARTAN POTASSIUM 50 MG TABLET PO SCH (09:14)
[2022-05-02] MEDS: LIDOCAINE 5% TOPICAL PATCH TP SCH (10:10)
[2022-05-02] MEDS: LIDOCAINE PATCH REMOVAL MC SCH (21:37)
[2022-05-03] MEDS: CEFAZOLIN SODIUM 2 GM in DEXTROSE 5%-WATER 100 ML IVPB SCH ×3 (05:08→21:17)
[2022-05-03] MEDS: BACLOFEN 10 MG TABLET (FP) PO SCH ×3 (05:10→21:18)
[2022-05-03] MEDS: GABAPENTIN 300 MG CAPSULE PO SCH ×3 (05:10→21:18)
[2022-05-03] MEDS: POLYETHYLENE GLYCOL (HEALTHYLAX) 3350 17 GM PACKET PO SCH (09:55)
[2022-05-03] MEDS: LOSARTAN POTASSIUM 50 MG TABLET PO SCH (09:55)
[2022-05-03] MEDS: LIDOCAINE 5% TOPICAL PATCH TP SCH (09:55)
[2022-05-03] MEDS: ENOXAPARIN NA (PORCINE) 40 MG/0.4 ML DISP.SYRIN SQ SCH (09:55)
[2022-05-03] MEDS: TAMSULOSIN HCL 0.4 MG CAP PO SCH (09:55)
[2022-05-03] MEDS: LIDOCAINE PATCH REMOVAL MC SCH (21:18)
[2022-05-04] MEDS: CEFAZOLIN SODIUM 2 GM in DEXTROSE 5%-WATER 100 ML IVPB SCH ×3 (05:07→22:19)
[2022-05-04] MEDS: BACLOFEN 10 MG TABLET (FP) PO SCH ×3 (05:08→22:19)
[2022-05-04] MEDS: GABAPENTIN 300 MG CAPSULE PO SCH ×3 (05:09→22:19)
[2022-05-04] MEDS: TAMSULOSIN HCL 0.4 MG CAP PO SCH (08:19)
[2022-05-04] MEDS: LIDOCAINE 5% TOPICAL PATCH TP SCH (09:06)
[2022-05-04] MEDS: POLYETHYLENE GLYCOL (HEALTHYLAX) 3350 17 GM PACKET PO SCH (09:07)
[2022-05-04] MEDS: LOSARTAN POTASSIUM 50 MG TABLET PO SCH (09:07)
[2022-05-04] MEDS: ENOXAPARIN NA (PORCINE) 40 MG/0.4 ML DISP.SYRIN SQ SCH (09:07)
[2022-05-04 11:54] LABS: BASO % 0.5 % (0-2.0); EOS % 1.7 % (0-4.5); HEMATOCRIT 29.7 % (35.4-49); HEMOGLOBIN 9.6 GM/dL (11.7-16.9); LYMPH % 41.3 % (8-40); MCH 30.9 pg (25.7-33.7); MCHC 32.3 g/dl (32.0-35.9); MEAN CELL VOLUME 95.4 fl (80-96); MEAN PLT VOLUME 6.8 fl (7.5-11.1); MONO % 8.7 % (3.8-10.2); NEUT % 47.8 % (42.8-82.8); PLATELET COUNT 369 10^3/uL (134-434); RBC 3.11 M/mm3 (4.00-5.60); RDW 14.6 % (11.9-15.9); WHITE BLOOD COUNT 4.1 K/mm3 (4.0-10.0)
[2022-05-04 12:32] LABS: BILIRUBIN,TOTAL 0.4 mg/dL (0.2-1)
[2022-05-04 12:33] LABS: ALBUMIN 2.3 g/dl (3.4-5.0); BLOOD UREA NITROGEN 13.5 mg/dL (7-18); TOT PROT 8.4 g/dl (6.4-8.2)
[2022-05-04 12:35] LABS: CALCIUM 9.5 mg/dL (8.5-10.1)
[2022-05-04 12:36] LABS: CREATININE 1.1 mg/dL (0.55-1.3); MAGNESIUM 2.3 mg/dL (1.8-2.4); PHOSPHOROUS 3.4 mg/dL (2.5-4.9)
[2022-05-04] MEDS: LIDOCAINE PATCH REMOVAL MC SCH (22:20)
[2022-05-05] MEDS: CEFAZOLIN SODIUM 2 GM in DEXTROSE 5%-WATER 100 ML IVPB SCH ×3 (06:53→23:29)
[2022-05-05] MEDS: BACLOFEN 10 MG TABLET (FP) PO SCH ×3 (06:53→23:31)
[2022-05-05] MEDS: GABAPENTIN 300 MG CAPSULE PO SCH ×3 (06:53→23:31)
[2022-05-05] MEDS: TAMSULOSIN HCL 0.4 MG CAP PO SCH (08:16)
[2022-05-05] MEDS: ENOXAPARIN NA (PORCINE) 40 MG/0.4 ML DISP.SYRIN SQ SCH (09:54)
[2022-05-05] MEDS: POLYETHYLENE GLYCOL (HEALTHYLAX) 3350 17 GM PACKET PO SCH (09:54)
[2022-05-05] MEDS: LOSARTAN POTASSIUM 50 MG TABLET PO SCH (09:55)
[2022-05-05] MEDS: LIDOCAINE 5% TOPICAL PATCH TP SCH (09:55)
[2022-05-05] MEDS: LIDOCAINE PATCH REMOVAL MC SCH (23:47)
[2022-05-06] MEDS: CEFAZOLIN SODIUM 2 GM in DEXTROSE 5%-WATER 100 ML IVPB SCH ×3 (07:15→21:43)
[2022-05-06] MEDS: BACLOFEN 10 MG TABLET (FP) PO SCH ×3 (07:16→21:45)
[2022-05-06] MEDS: GABAPENTIN 300 MG CAPSULE PO SCH ×3 (07:16→21:45)
[2022-05-06] MEDS: TAMSULOSIN HCL 0.4 MG CAP PO SCH (10:17)
[2022-05-06] MEDS: LIDOCAINE 5% TOPICAL PATCH TP SCH (10:17)
[2022-05-06] MEDS: LOSARTAN POTASSIUM 50 MG TABLET PO SCH (10:17)
[2022-05-06] MEDS: POLYETHYLENE GLYCOL (HEALTHYLAX) 3350 17 GM PACKET PO SCH (10:17)
[2022-05-06] MEDS: ENOXAPARIN NA (PORCINE) 40 MG/0.4 ML DISP.SYRIN SQ SCH (10:18)
[2022-05-06] MEDS: LIDOCAINE PATCH REMOVAL MC SCH (21:44)
[2022-05-07] MEDS: BACLOFEN 10 MG TABLET (FP) PO SCH ×3 (05:31→21:24)
[2022-05-07] MEDS: GABAPENTIN 300 MG CAPSULE PO SCH ×3 (05:31→21:24)
[2022-05-07] MEDS: CEFAZOLIN SODIUM 2 GM in DEXTROSE 5%-WATER 100 ML IVPB SCH ×3 (05:45→21:23)
[2022-05-07] MEDS: ENOXAPARIN NA (PORCINE) 40 MG/0.4 ML DISP.SYRIN SQ SCH (10:20)
[2022-05-07] MEDS: TAMSULOSIN HCL 0.4 MG CAP PO SCH (10:20)
[2022-05-07] MEDS: LOSARTAN POTASSIUM 50 MG TABLET PO SCH (10:20)
[2022-05-07] MEDS: LIDOCAINE 5% TOPICAL PATCH TP SCH (10:21)
[2022-05-07] MEDS: POLYETHYLENE GLYCOL (HEALTHYLAX) 3350 17 GM PACKET PO SCH (10:21)
[2022-05-07] MEDS: LIDOCAINE PATCH REMOVAL MC SCH (21:24)
[2022-05-08] MEDS: CEFAZOLIN SODIUM 2 GM in DEXTROSE 5%-WATER 100 ML IVPB SCH ×3 (05:05→23:50)
[2022-05-08] MEDS: GABAPENTIN 300 MG CAPSULE PO SCH ×3 (05:06→23:50)
[2022-05-08] MEDS: BACLOFEN 10 MG TABLET (FP) PO SCH ×3 (05:06→23:50)
[2022-05-08] MEDS: LIDOCAINE 5% TOPICAL PATCH TP SCH (09:48)
[2022-05-08] MEDS: TAMSULOSIN HCL 0.4 MG CAP PO SCH (09:48)
[2022-05-08] MEDS: POLYETHYLENE GLYCOL (HEALTHYLAX) 3350 17 GM PACKET PO SCH (09:49)
[2022-05-08] MEDS: LOSARTAN POTASSIUM 50 MG TABLET PO SCH (09:49)
[2022-05-08] MEDS: ENOXAPARIN NA (PORCINE) 40 MG/0.4 ML DISP.SYRIN SQ SCH (09:50)
[2022-05-08] MEDS: LIDOCAINE PATCH REMOVAL MC SCH (23:58)
[2022-05-09] MEDS: CEFAZOLIN SODIUM 2 GM in DEXTROSE 5%-WATER 100 ML IVPB SCH ×3 (07:13→23:38)
[2022-05-09] MEDS: GABAPENTIN 300 MG CAPSULE PO SCH ×3 (07:15→23:37)
[2022-05-09] MEDS: BACLOFEN 10 MG TABLET (FP) PO SCH ×3 (07:16→23:37)
[2022-05-09] MEDS: LOSARTAN POTASSIUM 50 MG TABLET PO SCH (09:39)
[2022-05-09] MEDS: POLYETHYLENE GLYCOL (HEALTHYLAX) 3350 17 GM PACKET PO SCH (09:39)
[2022-05-09] MEDS: TAMSULOSIN HCL 0.4 MG CAP PO SCH (09:39)
[2022-05-09] MEDS: ENOXAPARIN NA (PORCINE) 40 MG/0.4 ML DISP.SYRIN SQ SCH (09:39)
[2022-05-09] MEDS: LIDOCAINE 5% TOPICAL PATCH TP SCH (09:39)
[2022-05-09] MEDS: LIDOCAINE PATCH REMOVAL MC SCH (23:51)
[2022-05-10] MEDS: GABAPENTIN 300 MG CAPSULE PO SCH ×3 (06:54→22:56)
[2022-05-10] MEDS: BACLOFEN 10 MG TABLET (FP) PO SCH ×3 (06:54→22:57)
[2022-05-10] MEDS: CEFAZOLIN SODIUM 2 GM in DEXTROSE 5%-WATER 100 ML IVPB SCH ×2 (06:55→13:51)
[2022-05-10] MEDS: POLYETHYLENE GLYCOL (HEALTHYLAX) 3350 17 GM PACKET PO SCH (09:17)
[2022-05-10] MEDS: TAMSULOSIN HCL 0.4 MG CAP PO SCH (09:17)
[2022-05-10] MEDS: ENOXAPARIN NA (PORCINE) 40 MG/0.4 ML DISP.SYRIN SQ SCH (09:17)
[2022-05-10] MEDS: LOSARTAN POTASSIUM 50 MG TABLET PO SCH (09:17)
[2022-05-10] MEDS: LIDOCAINE 5% TOPICAL PATCH TP SCH (09:18)
[2022-05-11] MEDS: LIDOCAINE PATCH REMOVAL MC SCH ×2 (01:22→22:36)
[2022-05-11] MEDS: BACLOFEN 10 MG TABLET (FP) PO SCH ×3 (06:53→22:36)
[2022-05-11] MEDS: GABAPENTIN 300 MG CAPSULE PO SCH ×3 (06:53→22:36)
[2022-05-11] MEDS: TAMSULOSIN HCL 0.4 MG CAP PO SCH (09:51)
[2022-05-11] MEDS: LIDOCAINE 5% TOPICAL PATCH TP SCH (09:51)
[2022-05-11] MEDS: LOSARTAN POTASSIUM 50 MG TABLET PO SCH (09:52)
[2022-05-11] MEDS: POLYETHYLENE GLYCOL (HEALTHYLAX) 3350 17 GM PACKET PO SCH (09:52)
[2022-05-11] MEDS: ENOXAPARIN NA (PORCINE) 40 MG/0.4 ML DISP.SYRIN SQ SCH (09:53)
[2022-05-11 10:19] LABS: BASO % 0.5 % (0-2.0); EOS % 2.1 % (0-4.5); HEMATOCRIT 34.1 % (35.4-49); HEMOGLOBIN 10.9 GM/dL (11.7-16.9); LYMPH % 40.5 % (8-40); MCH 30.9 pg (25.7-33.7); MEAN CELL VOLUME 96.7 fl (80-96); MEAN PLT VOLUME 6.8 fl (7.5-11.1); MONO % 10.8 % (3.8-10.2); NEUT % 46.1 % (42.8-82.8); PLATELET COUNT 365 10^3/uL (134-434); RBC 3.52 M/mm3 (4.00-5.60); RDW 15.6 % (11.9-15.9); WHITE BLOOD COUNT 3.7 K/mm3 (4.0-10.0)
[2022-05-11 11:45] LABS: ALBUMIN 2.8 g/dl (3.4-5.0); CALCIUM 9.4 mg/dL (8.5-10.1); MAGNESIUM 2.2 mg/dL (1.8-2.4)
[2022-05-11 11:46] LABS: BLOOD UREA NITROGEN 14.9 mg/dL (7-18)
[2022-05-11 11:48] LABS: PHOSPHOROUS 3.6 mg/dL (2.5-4.9)
[2022-05-11 11:50] LABS: BILIRUBIN,TOTAL 0.7 mg/dL (0.2-1); TOT PROT 8.5 g/dl (6.4-8.2)
[2022-05-11] MEDS ORDERED: ceFAZolin 2 GRAM PREMIX BAG IVPB SCH ×2 (13:30)
[2022-05-11] MEDS: CEFAZOLIN SODIUM 2 GM in DEXTROSE 5%-WATER 100 ML IVPB SCH ×2 (14:40→22:36)
[2022-05-12] MEDS: BACLOFEN 10 MG TABLET (FP) PO SCH ×3 (06:06→21:56)
[2022-05-12] MEDS: GABAPENTIN 300 MG CAPSULE PO SCH ×3 (06:06→21:56)
[2022-05-12] MEDS: CEFAZOLIN SODIUM 2 GM in DEXTROSE 5%-WATER 100 ML IVPB SCH ×3 (06:41→21:56)
[2022-05-12] MEDS: LIDOCAINE 5% TOPICAL PATCH TP SCH (09:07)
[2022-05-12] MEDS: LOSARTAN POTASSIUM 50 MG TABLET PO SCH (09:07)
[2022-05-12] MEDS: ENOXAPARIN NA (PORCINE) 40 MG/0.4 ML DISP.SYRIN SQ SCH (09:08)
[2022-05-12] MEDS: POLYETHYLENE GLYCOL (HEALTHYLAX) 3350 17 GM PACKET PO SCH (09:08)
[2022-05-12] MEDS: TAMSULOSIN HCL 0.4 MG CAP PO SCH (09:08)
[2022-05-12] MEDS: LIDOCAINE PATCH REMOVAL MC SCH (21:56)
[2022-05-13] MEDS: BACLOFEN 10 MG TABLET (FP) PO SCH ×3 (05:22→22:08)
[2022-05-13] MEDS: GABAPENTIN 300 MG CAPSULE PO SCH ×3 (05:22→22:08)
[2022-05-13] MEDS: CEFAZOLIN SODIUM 2 GM in DEXTROSE 5%-WATER 100 ML IVPB SCH ×3 (05:23→22:08)
[2022-05-13] MEDS: ENOXAPARIN NA (PORCINE) 40 MG/0.4 ML DISP.SYRIN SQ SCH (09:15)
[2022-05-13] MEDS: POLYETHYLENE GLYCOL (HEALTHYLAX) 3350 17 GM PACKET PO SCH (09:15)
[2022-05-13] MEDS: LIDOCAINE 5% TOPICAL PATCH TP SCH (09:15)
[2022-05-13] MEDS: LOSARTAN POTASSIUM 50 MG TABLET PO SCH (09:15)
[2022-05-13] MEDS: TAMSULOSIN HCL 0.4 MG CAP PO SCH (09:15)
[2022-05-13] MEDS: LIDOCAINE PATCH REMOVAL MC SCH (22:08)
[2022-05-14] MEDS: CEFAZOLIN SODIUM 2 GM in DEXTROSE 5%-WATER 100 ML IVPB SCH ×3 (05:31→22:31)
[2022-05-14] MEDS: GABAPENTIN 300 MG CAPSULE PO SCH ×3 (05:32→22:31)
[2022-05-14] MEDS: BACLOFEN 10 MG TABLET (FP) PO SCH ×3 (05:32→22:31)
[2022-05-14] MEDS: TAMSULOSIN HCL 0.4 MG CAP PO SCH (08:43)
[2022-05-14] MEDS: LOSARTAN POTASSIUM 50 MG TABLET PO SCH (10:32)
[2022-05-14] MEDS: POLYETHYLENE GLYCOL (HEALTHYLAX) 3350 17 GM PACKET PO SCH (10:32)
[2022-05-14] MEDS: ENOXAPARIN NA (PORCINE) 40 MG/0.4 ML DISP.SYRIN SQ SCH (10:33)
[2022-05-14] MEDS: LIDOCAINE 5% TOPICAL PATCH TP SCH (10:33)
[2022-05-14] MEDS: LIDOCAINE PATCH REMOVAL MC SCH (22:32)
[2022-05-15] MEDS: BACLOFEN 10 MG TABLET (FP) PO SCH ×3 (07:08→21:56)
[2022-05-15] MEDS: CEFAZOLIN SODIUM 2 GM in DEXTROSE 5%-WATER 100 ML IVPB SCH ×3 (07:08→21:54)
[2022-05-15] MEDS: GABAPENTIN 300 MG CAPSULE PO SCH ×3 (07:08→21:55)
[2022-05-15] MEDS: LOSARTAN POTASSIUM 50 MG TABLET PO SCH (09:16)
[2022-05-15] MEDS: TAMSULOSIN HCL 0.4 MG CAP PO SCH (09:16)
[2022-05-15] MEDS: POLYETHYLENE GLYCOL (HEALTHYLAX) 3350 17 GM PACKET PO SCH (09:16)
[2022-05-15] MEDS: ENOXAPARIN NA (PORCINE) 40 MG/0.4 ML DISP.SYRIN SQ SCH (09:17)
[2022-05-15] MEDS: LIDOCAINE 5% TOPICAL PATCH TP SCH (09:17)
[2022-05-15] MEDS: LIDOCAINE PATCH REMOVAL MC SCH (22:04)
[2022-05-16] MEDS: GABAPENTIN 300 MG CAPSULE PO SCH ×3 (06:48→22:01)
[2022-05-16] MEDS: CEFAZOLIN SODIUM 2 GM in DEXTROSE 5%-WATER 100 ML IVPB SCH ×3 (06:48→22:02)
[2022-05-16] MEDS: BACLOFEN 10 MG TABLET (FP) PO SCH ×3 (06:48→22:01)
[2022-05-16] MEDS: LIDOCAINE 5% TOPICAL PATCH TP SCH (09:33)
[2022-05-16] MEDS: TAMSULOSIN HCL 0.4 MG CAP PO SCH (09:33)
[2022-05-16] MEDS: POLYETHYLENE GLYCOL (HEALTHYLAX) 3350 17 GM PACKET PO SCH (09:33)
[2022-05-16] MEDS: LOSARTAN POTASSIUM 50 MG TABLET PO SCH (09:33)
[2022-05-16] MEDS: ENOXAPARIN NA (PORCINE) 40 MG/0.4 ML DISP.SYRIN SQ SCH (09:39)
[2022-05-16] MEDS: LIDOCAINE PATCH REMOVAL MC SCH (22:02)
[2022-05-17] MEDS: GABAPENTIN 300 MG CAPSULE PO SCH ×3 (05:27→21:33)
[2022-05-17] MEDS: BACLOFEN 10 MG TABLET (FP) PO SCH ×3 (05:28→21:33)
[2022-05-17] MEDS: CEFAZOLIN SODIUM 2 GM in DEXTROSE 5%-WATER 100 ML IVPB SCH ×3 (05:28→21:40)
[2022-05-17] MEDS: TAMSULOSIN HCL 0.4 MG CAP PO SCH (09:30)
[2022-05-17] MEDS: ENOXAPARIN NA (PORCINE) 40 MG/0.4 ML DISP.SYRIN SQ SCH (09:30)
[2022-05-17] MEDS: LOSARTAN POTASSIUM 50 MG TABLET PO SCH (09:30)
[2022-05-17] MEDS: LIDOCAINE 5% TOPICAL PATCH TP SCH (09:31)
[2022-05-17] MEDS: POLYETHYLENE GLYCOL (HEALTHYLAX) 3350 17 GM PACKET PO SCH (09:31)
[2022-05-17] MEDS: LIDOCAINE PATCH REMOVAL MC SCH (21:33)
[2022-05-18] MEDS: CEFAZOLIN SODIUM 2 GM in DEXTROSE 5%-WATER 100 ML IVPB SCH ×3 (05:29→22:08)
[2022-05-18] MEDS: GABAPENTIN 300 MG CAPSULE PO SCH ×3 (05:30→22:08)
[2022-05-18] MEDS: BACLOFEN 10 MG TABLET (FP) PO SCH ×3 (05:30→22:08)
[2022-05-18 10:09] LABS: BASO % 0.5 % (0-2.0); EOS % 1.9 % (0-4.5); HEMATOCRIT 30.9 % (35.4-49); HEMOGLOBIN 9.9 GM/dL (11.7-16.9); LYMPH % 38.6 % (8-40); MCH 30.8 pg (25.7-33.7); MCHC 32.1 g/dl (32.0-35.9); MEAN CELL VOLUME 95.8 fl (80-96); MEAN PLT VOLUME 7.5 fl (7.5-11.1); MONO % 13.7 % (3.8-10.2); NEUT % 45.3 % (42.8-82.8); PLATELET COUNT 288 10^3/uL (134-434); RBC 3.23 M/mm3 (4.00-5.60); RDW 14.7 % (11.9-15.9); WHITE BLOOD COUNT 3.7 K/mm3 (4.0-10.0)
[2022-05-18 10:56] LABS: ALBUMIN 2.5 g/dl (3.4-5.0)
[2022-05-18 10:57] LABS: BLOOD UREA NITROGEN 14.1 mg/dL (7-18); CALCIUM 9.7 mg/dL (8.5-10.1); MAGNESIUM 2.3 mg/dL (1.8-2.4)
[2022-05-18 10:59] LABS: CREATININE 0.9 mg/dL (0.55-1.3)
[2022-05-18 11:01] LABS: BILIRUBIN,TOTAL 0.4 mg/dL (0.2-1)
[2022-05-18 11:02] LABS: TOT PROT 7.8 g/dl (6.4-8.2)
[2022-05-18] MEDS: POLYETHYLENE GLYCOL (HEALTHYLAX) 3350 17 GM PACKET PO SCH (11:04)
[2022-05-18] MEDS: TAMSULOSIN HCL 0.4 MG CAP PO SCH (11:04)
[2022-05-18] MEDS: LIDOCAINE 5% TOPICAL PATCH TP SCH (11:04)
[2022-05-18] MEDS: LOSARTAN POTASSIUM 50 MG TABLET PO SCH (11:05)
[2022-05-18] MEDS: ENOXAPARIN NA (PORCINE) 40 MG/0.4 ML DISP.SYRIN SQ SCH (11:05)
[2022-05-18] MEDS: LIDOCAINE PATCH REMOVAL MC SCH (22:09)
[2022-05-19] MEDS: CEFAZOLIN SODIUM 2 GM in DEXTROSE 5%-WATER 100 ML IVPB SCH ×3 (06:52→23:20)
[2022-05-19] MEDS: BACLOFEN 10 MG TABLET (FP) PO SCH ×3 (06:52→23:21)
[2022-05-19] MEDS: GABAPENTIN 300 MG CAPSULE PO SCH ×3 (06:52→23:21)
[2022-05-19] MEDS: LIDOCAINE 5% TOPICAL PATCH TP SCH (09:43)
[2022-05-19] MEDS: ENOXAPARIN NA (PORCINE) 40 MG/0.4 ML DISP.SYRIN SQ SCH (09:44)
[2022-05-19] MEDS: POLYETHYLENE GLYCOL (HEALTHYLAX) 3350 17 GM PACKET PO SCH (09:44)
[2022-05-19] MEDS: LOSARTAN POTASSIUM 50 MG TABLET PO SCH (09:44)
[2022-05-19] MEDS: TAMSULOSIN HCL 0.4 MG CAP PO SCH (09:44)
[2022-05-19] MEDS: LIDOCAINE PATCH REMOVAL MC SCH (23:21)
[2022-05-20] MEDS: CEFAZOLIN SODIUM 2 GM in DEXTROSE 5%-WATER 100 ML IVPB SCH ×3 (05:59→21:15)
[2022-05-20] MEDS: BACLOFEN 10 MG TABLET (FP) PO SCH ×3 (05:59→21:17)
[2022-05-20] MEDS: GABAPENTIN 300 MG CAPSULE PO SCH ×3 (05:59→21:17)
[2022-05-20] MEDS: LIDOCAINE 5% TOPICAL PATCH TP SCH (10:09)
[2022-05-20] MEDS: ENOXAPARIN NA (PORCINE) 40 MG/0.4 ML DISP.SYRIN SQ SCH (10:09)
[2022-05-20] MEDS: LOSARTAN POTASSIUM 50 MG TABLET PO SCH (10:10)
[2022-05-20] MEDS: TAMSULOSIN HCL 0.4 MG CAP PO SCH (10:10)
[2022-05-20] MEDS: POLYETHYLENE GLYCOL (HEALTHYLAX) 3350 17 GM PACKET PO SCH (10:10)
[2022-05-20] MEDS: LIDOCAINE PATCH REMOVAL MC SCH (21:17)
[2022-05-21] MEDS: CEFAZOLIN SODIUM 2 GM in DEXTROSE 5%-WATER 100 ML IVPB SCH ×3 (05:37→21:14)
[2022-05-21] MEDS: GABAPENTIN 300 MG CAPSULE PO SCH ×3 (05:38→21:15)
[2022-05-21] MEDS: BACLOFEN 10 MG TABLET (FP) PO SCH ×3 (05:38→21:15)
[2022-05-21] MEDS: LOSARTAN POTASSIUM 50 MG TABLET PO SCH (10:23)
[2022-05-21] MEDS: POLYETHYLENE GLYCOL (HEALTHYLAX) 3350 17 GM PACKET PO SCH (10:24)
[2022-05-21] MEDS: LIDOCAINE 5% TOPICAL PATCH TP SCH (10:24)
[2022-05-21] MEDS: TAMSULOSIN HCL 0.4 MG CAP PO SCH (10:24)
[2022-05-21] MEDS: ENOXAPARIN NA (PORCINE) 40 MG/0.4 ML DISP.SYRIN SQ SCH (10:25)
[2022-05-21] MEDS: LIDOCAINE PATCH REMOVAL MC SCH (21:16)
[2022-05-22] MEDS: CEFAZOLIN SODIUM 2 GM in DEXTROSE 5%-WATER 100 ML IVPB SCH ×3 (05:27→21:52)
[2022-05-22] MEDS: BACLOFEN 10 MG TABLET (FP) PO SCH ×3 (05:28→21:51)
[2022-05-22] MEDS: GABAPENTIN 300 MG CAPSULE PO SCH ×3 (05:28→21:51)
[2022-05-22] MEDS: TAMSULOSIN HCL 0.4 MG CAP PO SCH (08:54)
[2022-05-22] MEDS: ENOXAPARIN NA (PORCINE) 40 MG/0.4 ML DISP.SYRIN SQ SCH (10:08)
[2022-05-22] MEDS: POLYETHYLENE GLYCOL (HEALTHYLAX) 3350 17 GM PACKET PO SCH (10:08)
[2022-05-22] MEDS: LOSARTAN POTASSIUM 50 MG TABLET PO SCH (10:08)
[2022-05-22] MEDS: LIDOCAINE 5% TOPICAL PATCH TP SCH (10:09)
[2022-05-22] MEDS: LIDOCAINE PATCH REMOVAL MC SCH (21:52)
[2022-05-23] MEDS: BACLOFEN 10 MG TABLET (FP) PO SCH ×3 (06:13→21:45)
[2022-05-23] MEDS: CEFAZOLIN SODIUM 2 GM in DEXTROSE 5%-WATER 100 ML IVPB SCH ×3 (06:13→21:45)
[2022-05-23] MEDS: GABAPENTIN 300 MG CAPSULE PO SCH ×3 (06:13→21:45)
[2022-05-23] MEDS: LIDOCAINE 5% TOPICAL PATCH TP SCH (10:07)
[2022-05-23] MEDS: LOSARTAN POTASSIUM 50 MG TABLET PO SCH (10:08)
[2022-05-23] MEDS: TAMSULOSIN HCL 0.4 MG CAP PO SCH (10:09)
[2022-05-23] MEDS: POLYETHYLENE GLYCOL (HEALTHYLAX) 3350 17 GM PACKET PO SCH (10:09)
[2022-05-23] MEDS: ENOXAPARIN NA (PORCINE) 40 MG/0.4 ML DISP.SYRIN SQ SCH (10:09)
[2022-05-23] MEDS: LIDOCAINE PATCH REMOVAL MC SCH (21:45)
[2022-05-24] MEDS: CEFAZOLIN SODIUM 2 GM in DEXTROSE 5%-WATER 100 ML IVPB SCH ×3 (06:29→21:40)
[2022-05-24] MEDS: BACLOFEN 10 MG TABLET (FP) PO SCH ×3 (06:30→21:40)
[2022-05-24] MEDS: GABAPENTIN 300 MG CAPSULE PO SCH ×3 (06:30→21:40)
[2022-05-24] MEDS: TAMSULOSIN HCL 0.4 MG CAP PO SCH (08:50)
[2022-05-24] MEDS: LOSARTAN POTASSIUM 50 MG TABLET PO SCH (09:22)
[2022-05-24] MEDS: POLYETHYLENE GLYCOL (HEALTHYLAX) 3350 17 GM PACKET PO SCH (09:23)
[2022-05-24] MEDS: LIDOCAINE 5% TOPICAL PATCH TP SCH (09:23)
[2022-05-24] MEDS: ENOXAPARIN NA (PORCINE) 40 MG/0.4 ML DISP.SYRIN SQ SCH (09:24)
[2022-05-24] MEDS: LIDOCAINE PATCH REMOVAL MC SCH (21:40)
[2022-05-25] MEDS: CEFAZOLIN SODIUM 2 GM in DEXTROSE 5%-WATER 100 ML IVPB SCH ×3 (06:04→21:46)
[2022-05-25] MEDS: BACLOFEN 10 MG TABLET (FP) PO SCH ×3 (06:04→21:46)
[2022-05-25] MEDS: GABAPENTIN 300 MG CAPSULE PO SCH ×3 (06:04→21:46)
[2022-05-25] MEDS: ENOXAPARIN NA (PORCINE) 40 MG/0.4 ML DISP.SYRIN SQ SCH (10:37)
[2022-05-25] MEDS: LIDOCAINE 5% TOPICAL PATCH TP SCH (10:38)
[2022-05-25] MEDS: LOSARTAN POTASSIUM 50 MG TABLET PO SCH (10:38)
[2022-05-25] MEDS: TAMSULOSIN HCL 0.4 MG CAP PO SCH (10:38)
[2022-05-25] MEDS: POLYETHYLENE GLYCOL (HEALTHYLAX) 3350 17 GM PACKET PO SCH (10:39)
[2022-05-25 10:57] LABS: BASO % 0.5 % (0-2.0); EOS % 3.4 % (0-4.5); HEMOGLOBIN 11.2 GM/dL (11.7-16.9); MCH 31.1 pg (25.7-33.7); MCHC 32.1 g/dl (32.0-35.9); MEAN CELL VOLUME 96.8 fl (80-96); MEAN PLT VOLUME 7.1 fl (7.5-11.1); MONO % 10.6 % (3.8-10.2); NEUT % 41.5 % (42.8-82.8); PLATELET COUNT 344 10^3/uL (134-434); RBC 3.61 M/mm3 (4.00-5.60); RDW 15.3 % (11.9-15.9); WHITE BLOOD COUNT 5.9 K/mm3 (4.0-10.0)
[2022-05-25 11:25] LABS: CALCIUM 9.4 mg/dL (8.5-10.1); MAGNESIUM 2.2 mg/dL (1.8-2.4)
[2022-05-25 11:28] LABS: CREATININE 1.2 mg/dL (0.55-1.3); PHOSPHOROUS 3.6 mg/dL (2.5-4.9)
[2022-05-25 11:30] LABS: BILIRUBIN,TOTAL 0.9 mg/dL (0.2-1); TOT PROT 8.9 g/dl (6.4-8.2)
[2022-05-25] MEDS: LIDOCAINE PATCH REMOVAL MC SCH (21:46)
[2022-05-26] MEDS: CEFAZOLIN SODIUM 2 GM in DEXTROSE 5%-WATER 100 ML IVPB SCH ×3 (06:30→21:27)
[2022-05-26] MEDS: BACLOFEN 10 MG TABLET (FP) PO SCH ×3 (06:30→21:28)
[2022-05-26] MEDS: GABAPENTIN 300 MG CAPSULE PO SCH ×3 (06:30→21:28)
[2022-05-26] MEDS: LOSARTAN POTASSIUM 50 MG TABLET PO SCH (09:17)
[2022-05-26] MEDS: TAMSULOSIN HCL 0.4 MG CAP PO SCH (09:17)
[2022-05-26] MEDS: ENOXAPARIN NA (PORCINE) 40 MG/0.4 ML DISP.SYRIN SQ SCH (09:18)
[2022-05-26] MEDS: POLYETHYLENE GLYCOL (HEALTHYLAX) 3350 17 GM PACKET PO SCH (09:18)
[2022-05-26] MEDS: LIDOCAINE 5% TOPICAL PATCH TP SCH (09:18)
[2022-05-26] MEDS: LIDOCAINE PATCH REMOVAL MC SCH (21:28)
[2022-05-27] MEDS: GABAPENTIN 300 MG CAPSULE PO SCH ×3 (06:00→22:49)
[2022-05-27] MEDS: CEFAZOLIN SODIUM 2 GM in DEXTROSE 5%-WATER 100 ML IVPB SCH ×3 (06:00→22:48)
[2022-05-27] MEDS: BACLOFEN 10 MG TABLET (FP) PO SCH ×3 (06:00→22:48)
[2022-05-27] MEDS: POLYETHYLENE GLYCOL (HEALTHYLAX) 3350 17 GM PACKET PO SCH (09:38)
[2022-05-27] MEDS: ENOXAPARIN NA (PORCINE) 40 MG/0.4 ML DISP.SYRIN SQ SCH (09:38)
[2022-05-27] MEDS: LOSARTAN POTASSIUM 50 MG TABLET PO SCH (09:38)
[2022-05-27] MEDS: LIDOCAINE 5% TOPICAL PATCH TP SCH (09:38)
[2022-05-27] MEDS: TAMSULOSIN HCL 0.4 MG CAP PO SCH (09:38)
[2022-05-27] MEDS: LIDOCAINE PATCH REMOVAL MC SCH (22:49)
[2022-05-28] MEDS: BACLOFEN 10 MG TABLET (FP) PO SCH ×3 (06:40→22:48)
[2022-05-28] MEDS: GABAPENTIN 300 MG CAPSULE PO SCH ×3 (06:40→22:48)
[2022-05-28] MEDS: CEFAZOLIN SODIUM 2 GM in DEXTROSE 5%-WATER 100 ML IVPB SCH ×3 (06:40→22:47)
[2022-05-28] MEDS: TAMSULOSIN HCL 0.4 MG CAP PO SCH (09:30)
[2022-05-28] MEDS: POLYETHYLENE GLYCOL (HEALTHYLAX) 3350 17 GM PACKET PO SCH (09:30)
[2022-05-28] MEDS: ENOXAPARIN NA (PORCINE) 40 MG/0.4 ML DISP.SYRIN SQ SCH (09:30)
[2022-05-28] MEDS: LOSARTAN POTASSIUM 50 MG TABLET PO SCH (09:30)
[2022-05-28] MEDS: LIDOCAINE 5% TOPICAL PATCH TP SCH (09:43)
[2022-05-28] MEDS: LIDOCAINE PATCH REMOVAL MC SCH (22:48)
[2022-05-29] MEDS: CEFAZOLIN SODIUM 2 GM in DEXTROSE 5%-WATER 100 ML IVPB SCH ×3 (06:43→23:08)
[2022-05-29] MEDS: BACLOFEN 10 MG TABLET (FP) PO SCH ×3 (06:44→23:09)
[2022-05-29] MEDS: GABAPENTIN 300 MG CAPSULE PO SCH ×3 (06:44→23:08)
[2022-05-29] MEDS: TAMSULOSIN HCL 0.4 MG CAP PO SCH (10:10)
[2022-05-29] MEDS: POLYETHYLENE GLYCOL (HEALTHYLAX) 3350 17 GM PACKET PO SCH (10:10)
[2022-05-29] MEDS: LIDOCAINE 5% TOPICAL PATCH TP SCH (10:10)
[2022-05-29] MEDS: LOSARTAN POTASSIUM 50 MG TABLET PO SCH (10:10)
[2022-05-29] MEDS: ENOXAPARIN NA (PORCINE) 40 MG/0.4 ML DISP.SYRIN SQ SCH (10:11)
[2022-05-29 10:19] LABS: BASO % 0.6 % (0-2.0); HEMATOCRIT 35.6 % (35.4-49); HEMOGLOBIN 11.3 GM/dL (11.7-16.9); LYMPH % 42.1 % (8-40); MCH 30.5 pg (25.7-33.7); MCHC 31.6 g/dl (32.0-35.9); MEAN CELL VOLUME 96.7 fl (80-96); MEAN PLT VOLUME 6.9 fl (7.5-11.1); MONO % 14.1 % (3.8-10.2); NEUT % 41.2 % (42.8-82.8); PLATELET COUNT 315 10^3/uL (134-434); RBC 3.69 M/mm3 (4.00-5.60); RDW 15.8 % (11.9-15.9); WHITE BLOOD COUNT 3.6 K/mm3 (4.0-10.0)
[2022-05-29 10:40] LABS: CALCIUM 9.6 mg/dL (8.5-10.1)
[2022-05-29 10:41] LABS: BLOOD UREA NITROGEN 17.1 mg/dL (7-18)
[2022-05-30] MEDS: LIDOCAINE PATCH REMOVAL MC SCH ×2 (00:02→21:30)
[2022-05-30] MEDS: GABAPENTIN 300 MG CAPSULE PO SCH ×3 (06:28→21:30)
[2022-05-30] MEDS: CEFAZOLIN SODIUM 2 GM in DEXTROSE 5%-WATER 100 ML IVPB SCH ×3 (06:28→21:29)
[2022-05-30] MEDS: BACLOFEN 10 MG TABLET (FP) PO SCH ×3 (06:29→21:30)
[2022-05-30] MEDS: TAMSULOSIN HCL 0.4 MG CAP PO SCH (08:35)
[2022-05-30] MEDS: ENOXAPARIN NA (PORCINE) 40 MG/0.4 ML DISP.SYRIN SQ SCH (09:40)
[2022-05-30] MEDS: POLYETHYLENE GLYCOL (HEALTHYLAX) 3350 17 GM PACKET PO SCH (09:40)
[2022-05-30] MEDS: LOSARTAN POTASSIUM 50 MG TABLET PO SCH (09:40)
[2022-05-30] MEDS: LIDOCAINE 5% TOPICAL PATCH TP SCH (09:43)
[2022-05-30] MEDS ORDERED: CEFAZOLIN SODIUM 2 GM VIAL ONE (13:03)
[2022-05-31] MEDS: CEFAZOLIN SODIUM 2 GM in DEXTROSE 5%-WATER 100 ML IVPB SCH ×2 (05:28→13:55)
[2022-05-31] MEDS: GABAPENTIN 300 MG CAPSULE PO SCH ×2 (05:29→13:55)
[2022-05-31] MEDS: BACLOFEN 10 MG TABLET (FP) PO SCH ×2 (05:29→13:55)
[2022-05-31] MEDS: POLYETHYLENE GLYCOL (HEALTHYLAX) 3350 17 GM PACKET PO SCH (09:22)
[2022-05-31] MEDS: TAMSULOSIN HCL 0.4 MG CAP PO SCH (09:23)
[2022-05-31] MEDS: LOSARTAN POTASSIUM 50 MG TABLET PO SCH (09:23)
[2022-05-31] MEDS: LIDOCAINE 5% TOPICAL PATCH TP SCH (09:23)
[2022-05-31] MEDS: ENOXAPARIN NA (PORCINE) 40 MG/0.4 ML DISP.SYRIN SQ SCH (09:23)
[2022-05-31 11:19] VITALS: RESP 20
[2022-05-31 13:59] VITALS: PULSE 83; TEMP 97.7
[2022-05-31 15:10] VITALS: BP 110/88
== END 2022-05-31 16:04 | disposition home or self-care (01) | DRG 720 ==
LOC: JER 12:12 → JERBED 03-31 00:35 → OBSVTOIN 03-31 01:35 → J6S 03-31 09:00 → J8W 04-08 01:45
PROVIDERS: ADMIT Internal Medicine; ATTEND Internal Medicine
PROC: B246ZZ4 Ultrasonography of Right and Left Heart, Transesophageal (ICD-10-PCS; 2022-04-06)
PROC: 02HV33Z Insertion of Infusion Device into Superior Vena Cava, Percutaneous Approach (ICD-10-PCS; principal; 2022-04-20)
PROC: B548ZZA Ultrasonography of Superior Vena Cava, Guidance (ICD-10-PCS; 2022-04-20)
DX: A41.01 Sepsis due to Methicillin susceptible Staphylococcus aureus (principal); R50.9 Fever, unspecified; R00.0 Tachycardia, unspecified; K42.9 Umbilical hernia without obstruction or gangrene; D69.6 Thrombocytopenia, unspecified; E87.6 Hypokalemia; M46.45 Discitis, unspecified, thoracolumbar region; M48.061 Spinal stenosis, lumbar region without neurogenic claudication; N12 Tubulo-interstitial nephritis, not specified as acute or chronic; K59.00 Constipation, unspecified; N40.1 Benign prostatic hyperplasia with lower urinary tract symptoms; R33.8 Other retention of urine; D75.838 Other thrombocytosis; M51.36 Other intervertebral disc degeneration, lumbar region; G06.2 Extradural and subdural abscess, unspecified; I11.9 Hypertensive heart disease without heart failure
CPT/HCPCS: 0241U-QW; 36415; 36569; 70450-TC; 71045-TC-FY; 72146-TC; 72148-TC; 72158-TC; 74176-TC; 77001-TC-FY; 80048; 80053; 81003; 82248; 82272; 82607; 82728; 82746; 82962; 83540; 83550; 83605; 83735; 84100; 84153; 84443; 84484; 85025; 85045; 85610; 85651; 85730; 86140; 86850; 86900; 86901; 87040; 87086; 87186; 93005; 93010; 93306-TC; 93312; 93325; 97116-GP; 97162-GP; 99285-25; A9579; C1751; C9803-CS; G0378; J0475; U0003; U0005

== ENCOUNTER 2022-08-29 12:48 | Emergency (ER) | payer OTHER ==
[2022-08-29 13:04] VITALS: BMI 26.6
[2022-08-29] MEDS ORDERED: SODIUM CHLORIDE 0.9% 500 ML INFUS.BAG IV ONE (14:04)
[2022-08-29] MEDS ORDERED: morphine CARPU-JECT 4 MG/1 ML DISP.SYRIN IVPUSH ONE (14:09)
[2022-08-29] MEDS ORDERED: morphine SULFATE 4 MG/ML VIAL ONE (14:26)
[2022-08-29 14:47] LABS: BASO % 0.7 % (0-2.0); EOS % 1.3 % (0-4.5); HEMATOCRIT 36.4 % (35.4-49); HEMOGLOBIN 12.3 GM/dL (11.7-16.9); LYMPH % 34.4 % (8-40); MCH 30.2 pg (25.7-33.7); MCHC 33.9 g/dl (32.0-35.9); MEAN PLT VOLUME 7.4 fl (7.5-11.1); MONO % 11.1 % (3.8-10.2); NEUT % 52.5 % (42.8-82.8); PLATELET COUNT 226 10^3/uL (134-434); RBC 4.09 M/mm3 (4.00-5.60); RDW 14.6 % (11.9-15.9); WHITE BLOOD COUNT 3.8 K/mm3 (4.0-10.0)
[2022-08-29 15:17] LABS: CALCIUM 8.8 mg/dL (8.5-10.1)
[2022-08-29 15:19] LABS: ALBUMIN 3.6 g/dl (3.4-5.0); MAGNESIUM 2.3 mg/dL (1.8-2.4)
[2022-08-29 15:21] LABS: CREATININE 0.9 mg/dL (0.55-1.3)
[2022-08-29 15:22] LABS: TOT PROT 8.1 g/dl (6.4-8.2)
[2022-08-29 15:24] LABS: BILIRUBIN,TOTAL 0.3 mg/dL (0.2-1)
[2022-08-29 15:45] LABS: ERYTHROCYTE SEDIMENTATION RATE 42 mm/hr (0-20)
[2022-08-29] MEDS ORDERED: VANCOMYCIN 1 GM in D5W (PRE-DOCKED) 1,000 MG/250 ML IVPB ONE (21:10)
[2022-08-29] MEDS ORDERED: VANCOMYCIN/WATER FOR INJ (PEG) 1,000 MG/200 ML BAG IVPB ONE (21:21)
[2022-08-30 02:43] VITALS: BP 166/99; PULSE 78; RESP 20; TEMP 98.3
[2022-08-30] MEDS ORDERED: LOSARTAN POTASSIUM 50 MG TABLET PO ONE (02:50)
[2022-08-30] MEDS ORDERED: LOSARTAN POTASSIUM 50 MG TABLET ONE (02:57)
[2022-08-30 03:15] LABS: PH,URINE 6.5 (5.0-8.0); URINE APPEARANCE CLEAR; URINE BILIRUBIN NEGATIVE (NEGATIVE); URINE COLOR YELLOW; URINE GLUCOSE (UA) NEGATIVE (NEGATIVE); URINE KETONE NEGATIVE (NEGATIVE); URINE LEUK ESTERASE NEGATIVE (NEGATIVE); URINE NITRITE NEGATIVE (NEGATIVE); URINE PROTEIN NEGATIVE (NEGATIVE); URINE UROBILINOGEN 0.2 mg/dL (0.2-1.0)
== END 2022-08-30 03:32 | disposition short-term general hospital (02) ==
LOC: JER 12:48
PROC: 3E033GC Introduction of Other Therapeutic Substance into Peripheral Vein, Percutaneous Approach (ICD-10-PCS; principal; 2022-08-29)
PROC: 3E03329 Introduction of Other Anti-infective into Peripheral Vein, Percutaneous Approach (ICD-10-PCS; 2022-08-29)
DX: M46.46 Discitis, unspecified, lumbar region (principal); Z20.822 Contact with and (suspected) exposure to COVID-19
CPT/HCPCS: 36415; 71045-TC-FY; 72126-TC; 72129-TC; 72132-TC; 80053; 81003; 83735; 85025; 85651; 86140; 87040; 87086; 93005; 93010; 99285-25; C9803-CS; Q9967; U0003; U0005